=== PATIENT | female | born 1930 | race Caucasian/White ===

== ENCOUNTER 2018-10-17 20:21 | Inpatient (IN) | payer MEDICARE, MEDICAID ==
[~2018-10-17] VITALS: Ht 144.8 cm; Wt 45.5 kg
--- NOTE | 2018-10-17 00:10 | NUR ---
CORRESPONDENCE TRANSCRIBER NOTES ADMITTED AN 88 YEAR OLD PRYDEINIG SPEAKING FEMALE PATIENT, TRANSPORTED VIA GURNEY, ALERT AND CONFUSE, ACCOMPANIED BY DAUGHTER, NO RESPIRATORY DISTRESS, INITIAL ADMISSION ASSESSMENT DONE, ORIENTED PATIENT TO UNIT AND THE USE OF CALL LIGHT, SKIN ASSESSMENT DONE, IV ACCESS ON HER RIGHT AC G#20, SECURED, INTACT AND PATENT PATIENT DOESN'T WANT TO BE TOUCH AND MOVE FROM SIDE TO SIDE, WILL MONITOR ACCORDINGLY. Addendum: 10/18/18 at 0554 by ABDULKADIR AGUILLON RN THIS NOTE IS FOR THIS DATE 10/18/18 AT 00:10
[2018-10-17 11:40] VITALS: BP 146/78
--- NOTE | 2018-10-17 20:50 | NUR ---
BIB FAMILY. TO ER BED 1. JAPANESE SPEAKING FAMILY TO TRANSLET. AAOX3. NAD. NO SOB, BREATHING IS EVEN AND UNLABORED. DENIES CP. NON AMBULATORY, BIB WHEELCHAIR. C/O L HAND PAIN AND SWEELING, NO REDNESS, TENDER TO TOUCH, WARM AND DRY. DENIED OF TRAUMA BEEN GOING ON FOR THE PAST 2 WEEKS BUT WORST TODAY. PT COMPLAINING ALSO ABDOMINAL PAIN THAT STARTED TODAY. PT ON MONITOR. MD AT BEDSIDE FOR EVAL. AWAITING ORDERS
[2018-10-17] MEDS ORDERED: ACETAMINOPHEN 325 MG TABLET ONE (20:59)
[2018-10-17 21:25] LABS: BASOPHILS % (AUTO) 0.7 % (0.0-2.0); EOSINOPHILS % (AUTO) 1.7 % (0.0-6.0); HEMATOCRIT 37 % (33-45); HEMOGLOBIN 12.1 g/dL (11.5-14.8); LYMPHOCYTES % (AUTO) 14.2 % (20.0-44.0); MEAN CORPUSCULAR HGB CONC 33 g/dl (31.0-36.0); MEAN CORPUSCULAR VOLUME 88 fL (82-100); MONOCYTES # (AUTO) 0.6 /CMM (0.1-1.30); MONOCYTES % (AUTO) 8.4 % (2.0-12.0); NEUTROPHILS # (AUTO) 5.1 /CMM (1.8-8.9); PLATELET COUNT (AUTO) 286 /CMM (150-450); RED BLOOD CELL COUNT(AUTO) 4.14 MIL/uL (4.0-5.2); WHITE BLOOD COUNT (AUTO) 6.8 K/uL (4.3-11.0)
[2018-10-17 21:30] LABS: CALCIUM, SERUM 9.7 mg/dL (8.5-10.1); CARBON DIOXIDE 29 mmol/L (21-32); CHLORIDE 102 mmol/L (98-107); CREATININE 1.1 mg/dL (0.6-1.3); GLUCOSE 158 mg/dL (74-106); POTASSIUM 5.3 mmol/L (3.5-5.1); SODIUM SERUM 138 mmol/L (136-145); UREA NITROGEN, BLOOD 31 mg/dL (7-18)
[2018-10-17] MEDS ORDERED: ACETAMINOPHEN 325 MG TABLET PO ONE (21:30)
[2018-10-17 21:36] LABS: ALANINE AMINOTRANSFERASE 17 U/L (12-78); ALBUMIN 2.9 g/dL (3.4-5.0); ALKALINE PHOSPHATASE 205 U/L (46-116); ASPARTATE AMINOTRANSFERASE 27 U/L (15-37); BILIRUBIN,DIRECT 0.1 mg/dL (0.0-0.2); BILIRUBIN,TOTAL 0.5 mg/dL (0.2-1.0); LIPASE 53 U/L (73-393)
[2018-10-17] MEDS ORDERED: IOHEXOL-300 100 ML VIAL IV ONE (21:42)
--- NOTE | 2018-10-17 21:52 | NUR ---
being wheeled to CT
--- NOTE | 2018-10-17 23:17 | NUR ---
REPORT GIVEN TO MARIAH PASTOR. GOING TO 204-1
[2018-10-17] MEDS ORDERED: IV NS 0.9% 1,000 ML BAG IV STA (23:21)
[2018-10-17] MEDS ORDERED: BENA40TA8 PO (23:24)
[2018-10-17] MEDS ORDERED: QUET50TA PO (23:24)
[2018-10-17] MEDS ORDERED: GABA-534 PO (23:24)
[2018-10-17] MEDS ORDERED: METF-440 PO (23:24)
[2018-10-17] MEDS ORDERED: DULO20CA PO (23:24)
--- NOTE | 2018-10-17 23:24 | NUR ---
pt unable to urinate at this time for collection. made aware. no in and out cath. colect urine when pt is able to urinate
[2018-10-17] MEDS ORDERED: CEFTRIAXONE 1GM BAG (ER ONLY) 1 GM/50 ML PIGGYBACK IV ONE (23:30)
[2018-10-17] MEDS ORDERED: VANCOMYCIN 1 GM in IV NS 0.9% 250 ML IV SCH (23:30)
--- NOTE | 2018-10-17 23:30 | NUR ---
PT BEING TRANSPORTED BY EMT TO MED SURG UNIT. FAMILY WITH PATIENT.
--- NOTE | 2018-10-17 23:35 | NUR ---
DR ACOSTA ORDER ATB AND FLUID TO BE GIVEN AT THE FLOOR WHEN PT ARRIVES AT THE UNIT. MED ORDER BY ALEA CONWAY CANCELLED.
[2018-10-18] MEDS ORDERED: MAG HYDROX/AL HYDROX/SIMETH 30 ML UDC PO PRN
[2018-10-18] MEDS ORDERED: TEMAZEPAM 7.5 MG CAPSULE PO PRN
[2018-10-18] MEDS ORDERED: MAGNESIUM HYDROXIDE 30 ML UDC PO PRN
[2018-10-18] MEDS ORDERED: ONDANSETRON HCL/PF 4 MG/2 ML VIAL IVP PRN
[2018-10-18] MEDS ORDERED: HYDROCODONE/APAP 5/325MG 1 EACH TABLET PO PRN
[2018-10-18] MEDS ORDERED: DEXTROSE 50%-WATER 50 ML DISP.SYRIN IV PRN (01:30)
[2018-10-18] MEDS ORDERED: IV NS 0.9% 500 ML IV ONE (01:30)
[2018-10-18] MEDS ORDERED: VANCOMYCIN 1 GM VIAL ONE (02:16)
[2018-10-18] MEDS ORDERED: CEFTRIAXONE 1 G VIAL ONE (02:16)
--- NOTE | 2018-10-18 02:40 | NUR ---
RN NOTES CALLED WAITER/WAITRESS CABIN CLASS MICHELLE ACOSTA, REGARDING ROCEPHIN AND VANCOMYCIN MEDICATIONS THAT WERE SUPPOSED TO BE GIVEN AT ER, OK TO GIVE ROCEPHIN 1GM SCHEDULE FOR 0900 AM AND 1ST DOSE OF VANCOMYCIN 1 GM. NOTED.
[2018-10-18] MEDS: CEFTRIAXONE 1 G in IV D5W 50 ML IV SCH (02:54)
[2018-10-18 06:29] LABS: BASOPHILS % (AUTO) 0.5 % (0.0-2.0); EOSINOPHILS % (AUTO) 1.8 % (0.0-6.0); HEMATOCRIT 37 % (33-45); HEMOGLOBIN 12.3 g/dL (11.5-14.8); LYMPHOCYTES # (AUTO) 1.1 /CMM (0.8-4.8); LYMPHOCYTES % (AUTO) 17.8 % (20.0-44.0); MEAN CORPUSCULAR HGB CONC 34 g/dl (31.0-36.0); MEAN CORPUSCULAR VOLUME 87 fL (82-100); MONOCYTES # (AUTO) 0.6 /CMM (0.1-1.30); MONOCYTES % (AUTO) 9.8 % (2.0-12.0); NEUTROPHILS # (AUTO) 4.5 /CMM (1.8-8.9); NEUTROPHILS % (AUTO) 70.1 % (43.0-81.0); PLATELET COUNT (AUTO) 279 /CMM (150-450); WHITE BLOOD COUNT (AUTO) 6.4 K/uL (4.3-11.0)
[2018-10-18 06:42] LABS: CHOLESTEROL 172 mg/dL (<200); HDL CHOLESTEROL 86 mg/dL (40-60); LDL 63 mg/dL (0-99); TRIGLYCERIDES 177 mg/dL (30-150)
[2018-10-18] MEDS: IV NS 0.9% 1,000 ML IV PRN (07:16)
--- NOTE | 2018-10-18 07:25 | NUR ---
RN NOTES ALL NEEDS ATTENDED AND MET, KEPT CLEAN DRY AND COMFORTABLE, ENDORSED TO AM NURSE FOR CONTINUITY OF CARE, SEEN BY WOUND LUMBER SORTER MACHINE SOLANGE, ENDORSED FOR CONTINUITY OF CARE.
[2018-10-18] MEDS: BLOOD SUGAR DIAGNOSTIC 1 EACH STRIP IN SCH ×4 (07:31→22:00)
[2018-10-18] MEDS ORDERED: FEE PK DOSING 1 MIN EA MC ONE (07:56)
[2018-10-18 08:00] VITALS: BP_SYST 120; BP_SYST 174; BP_DIAS 59; BP_DIAS 99
--- NOTE | 2018-10-18 08:00 | NUR ---
MS 2 RN AM NOTES RECEIVED PT ALERT AND CONFUSED.VERBALLY RESPONSIVE IN ARMENIAN.PT HITS STAFF AND IS NON COMPLIANT WITH HER MEDS AND TX INSPITE OF EXPLAINING ITS RISKS AND BENEFITS.PT IS UNCOOPERATIVE. SCREAMING IN PAIN BUT REFUSED TO TAKE HER PAIN MEDS.SPITTED OUT ALL HER AM PO MEDS.WILL TRY LATER.A FEEDER.CALL LIGHT PLACED WITHIN REACH.
--- NOTE | 2018-10-18 08:05 | NUR ---
WOUND CARE CONSULT: PT PRESENTS WITH LEFT HAND SWELLING WITH RAISED AREA, SACRAL DEEP TISSUE INJURY IN EVOLUTION OVER SCARRING, LEFT HEEL CALLUS AND RT 4TH TOENAIL INJURY, PRESENT ON ADMISSION. RECOMMEND DPM CONSULT. DEFER TO MD/DNP FOR LEFT HAND. RECOMMENDATIONS MADE FOR WOUND CARE AND SKIN PROTECTION. DISCUSSED WITH NURSING STAFF. LOW AIRLOSS BED (ISOFLEX) TO BE PLACED. WILL SEE PRN. CONWAY IN AGREEMENT WITH PLAN OF CARE. Addendum: 10/18/18 at 0809 by ROMIE HILLU Amended: Links added. Addendum: 10/18/18 at [address] BOLIVAR NOTIFIED OF DPM CONSULT REQUEST.
[2018-10-18] MEDS ORDERED: ASPI-605 PO (08:21)
[2018-10-18] MEDS ORDERED: Z GUARD REMEDY 2 OZ OINT TP PRN (08:30)
[2018-10-18] MEDS: DULOXETINE HCL 20 MG CAPSULE.DR PO SCH ×2 (09:00→09:03)
[2018-10-18] MEDS: BENAZEPRIL HCL 20 MG TABLET PO SCH ×2 (09:00→09:03)
[2018-10-18] MEDS: QUETIAPINE FUMARATE 25 MG TABLET PO SCH ×3 (09:00→17:25)
--- NOTE | 2018-10-18 09:00 | NUR ---
Pt spitted all her AM meds and refused insulin as well inspite of explaining the risks and benefits.
[2018-10-18] MEDS: Z GUARD REMEDY 2 OZ OINT TP SCH (09:03)
[2018-10-18] MEDS: HYDROCODONE/APAP 10/325MG 1 EA TABLET PO PRN (09:03)
[2018-10-18 09:13] LABS: CARBON DIOXIDE 24 mmol/L (21-32); CHLORIDE 103 mmol/L (98-107); CREATININE 0.9 mg/dL (0.6-1.3); GLUCOSE 156 mg/dL (74-106); MAGNESIUM 1.5 mg/dL (1.8-2.4); PHOSPHORUS 3.9 mg/dL (2.5-4.9); POTASSIUM 4.7 mmol/L (3.5-5.1); SODIUM SERUM 140 mmol/L (136-145); UREA NITROGEN, BLOOD 25 mg/dL (7-18)
[2018-10-18] MEDS: AMLODIPINE BESYLATE 2.5 MG TABLET PO SCH (11:05)
[2018-10-18] MEDS: LACTOBACILLUS RHAMNOSUS GG 1 EACH CAP.SPRINK PO SCH (17:26)
--- NOTE | 2018-10-18 18:00 | NUR ---
PT REFUSED DINNER AND PO MEDS LACTOBACILLI AND SEROQUEL-HELD ADMINISTERING INSULIN.PT'S DAUGHTER AT BEDSIDE.
--- NOTE | 2018-10-18 19:06 | NUR ---
PT WAS SEEN BY DR LOVE AND NOLA CROCKER.
[2018-10-18 19:26] LABS: BILIRUBIN,URINE NEGATIVE (NEGATIVE); BLOOD, URINE 1+ Ery/uL (NEGATIVE); COLOR,URINE YELLOW (YELLOW); KETONES,URINE NEGATIVE (NEGATIVE); LEUKOCYTE ESTERASE ,URINE 1+ (NEGATIVE); NITRITE, URINE NEGATIVE (NEGATIVE); PH,URINE 5.5 (5.0-8.0); PROTEIN,URINE NEGATIVE (NEGATIVE); UGLUCOSE NEGATIVE (NEGATIVE); UROBILINOGEN,URINE 0.2 EU/dL (0.2)
--- NOTE | 2018-10-18 19:30 | NUR ---
RN OPENING NOTES: RECEIVED PATIENT ASLEEP IN BED, AROUSABLE, SLIGHTLY LETHARGIC. RESPONDS TO NAME AND PAIN. NO COMPLAIN OF PAIN. CALL LIGHT WITHIN REACH.
[2018-10-18 19:37] LABS: APPEARANCE,URINE HAZY (CLEAR)
[2018-10-18 19:38] LABS: BACTERIA,URINE Moderate /HPF (None Seen); SQUAMOUS EPITHELIAL CELL,UR Many /HPF (None Seen)
[2018-10-18 19:39] LABS: URINE AMORPHOUS URATE Few /HPF (None Seen)
[2018-10-18 20:22] VITALS: BP 133/85
[2018-10-18] MEDS: INSULIN REGULAR, HUMAN 100 UNIT/ML 3 ML VIAL SQ PRN (21:18)
--- NOTE | 2018-10-18 21:19 | NUR ---
RN NOTES: FINGERSTICK BLOOD SUGAR IS 113, NO INSULIN GIVEN. PER REPORTS FROM RN AM SHIFT,PATIENT DID NOT EAT HER DINNER. PATIENT HAS BEEN REFUSING MEDS. WILL CONTINUE TO MONITOR PATIENT AND BLOOD SUGAR.
[2018-10-18] MEDS: GABAPENTIN 300 MG CAPSULE PO SCH (21:25)
[2018-10-19] MEDS: IV NS 0.9% 1,000 ML IV PRN ×2 (00:21→20:00)
--- NOTE | 2018-10-19 03:56 | NUR ---
patient is awake, pulled her IV out, tip is intact, no bleeding noted.
--- NOTE | 2018-10-19 04:30 | NUR ---
IV G 22 reiserted by Lan LEMUS @ the left forearm.
[2018-10-19] MEDS: ACETAMINOPHEN 325 MG TABLET PO PRN ×2 (04:35→04:54)
[2018-10-19] MEDS: VANCOMYCIN 1 GM in IV D5W 250 ML IV SCH (04:35)
[2018-10-19] MEDS: INSULIN REGULAR, HUMAN 100 UNIT/ML 3 ML VIAL SQ PRN (07:01)
--- NOTE | 2018-10-19 07:06 | NUR ---
MS RN CLOSING NOTES: PATIENT IS RESTING COMFORTABLY IN BED, CONFUSED. NO SOB. PATIENT IS AWAKE,ALERT. BLOOD SUGAR THIS AM IS 176, 3 UNITS HUMULIN-R GIVEN. NO ACUTE EVENTS OVERNIGHT. NO COMPLAIN OF PAIN.
[2018-10-19] MEDS: BLOOD SUGAR DIAGNOSTIC 1 EACH STRIP IN SCH ×4 (07:21→21:37)
[2018-10-19 07:49] LABS: BASOPHILS % (AUTO) 0.5 % (0.0-2.0); EOSINOPHILS % (AUTO) 1.8 % (0.0-6.0); HEMATOCRIT 33 % (33-45); HEMOGLOBIN 11.1 g/dL (11.5-14.8); LYMPHOCYTES # (AUTO) 0.9 /CMM (0.8-4.8); LYMPHOCYTES % (AUTO) 14.4 % (20.0-44.0); MEAN CORPUSCULAR HGB CONC 34 g/dl (31.0-36.0); MEAN CORPUSCULAR VOLUME 87 fL (82-100); MONOCYTES # (AUTO) 0.6 /CMM (0.1-1.30); MONOCYTES % (AUTO) 10.1 % (2.0-12.0); NEUTROPHILS # (AUTO) 4.6 /CMM (1.8-8.9); NEUTROPHILS % (AUTO) 73.2 % (43.0-81.0); PLATELET COUNT (AUTO) 249 /CMM (150-450); RED BLOOD CELL COUNT(AUTO) 3.76 MIL/uL (4.0-5.2); WHITE BLOOD COUNT (AUTO) 6.3 K/uL (4.3-11.0)
[2018-10-19 07:59] LABS: CALCIUM, SERUM 8.3 mg/dL (8.5-10.1); CARBON DIOXIDE 22 mmol/L (21-32); CHLORIDE 105 mmol/L (98-107); CREATININE 0.6 mg/dL (0.6-1.3); GLUCOSE 192 mg/dL (74-106); PHOSPHORUS 2.9 mg/dL (2.5-4.9); POTASSIUM 4.3 mmol/L (3.5-5.1); SODIUM SERUM 137 mmol/L (136-145); UREA NITROGEN, BLOOD 14 mg/dL (7-18)
[2018-10-19 08:00] VITALS: BP 151/94
--- NOTE | 2018-10-19 08:00 | NUR ---
MS 2 RN AM NOTES RECEIVED PT ALERT AND CONFUSED.VERBALLY RESPONSIVE IN ESTONIAN.PT HITS STAFF AND IS NON COMPLIANT WITH HER MEDS AND TX INSPITE OF EXPLAINING ITS RISKS AND BENEFITS.PT IS UNCOOPERATIVE. PT TOOK HER MEDS WITH THE SON AT BEDSIDE.PT IS COOPERATIVE WHEN HER SON IS AROUND.A FEEDER.CALL LIGHT PLACED WITHIN REACH.
[2018-10-19 08:07] LABS: MAGNESIUM 1.2 mg/dL (1.8-2.4)
[2018-10-19] MEDS: HYDROCODONE/APAP 10/325MG 1 EA TABLET PO PRN (08:30)
[2018-10-19] MEDS: BENAZEPRIL HCL 20 MG TABLET PO SCH (08:30)
[2018-10-19] MEDS: AMLODIPINE BESYLATE 2.5 MG TABLET PO SCH (08:30)
[2018-10-19] MEDS: Z GUARD REMEDY 2 OZ OINT TP SCH (08:31)
[2018-10-19] MEDS: QUETIAPINE FUMARATE 25 MG TABLET PO SCH ×2 (08:31→17:40)
[2018-10-19] MEDS: DULOXETINE HCL 20 MG CAPSULE.DR PO SCH (08:31)
[2018-10-19] MEDS: LACTOBACILLUS RHAMNOSUS GG 1 EACH CAP.SPRINK PO SCH ×2 (08:31→17:40)
[2018-10-19] MEDS: ASPIRIN EC 81 MG TABLET.DR PO SCH (08:31)
[2018-10-19] MEDS: CEFTRIAXONE 1 G in IV D5W 50 ML IV SCH (08:33)
[2018-10-19] MEDS ORDERED: MAGNESIUM OXIDE 400 MG TABLET PO ONE (09:30)
[2018-10-19] MEDS ORDERED: LORAZEPAM INJ 2 MG/ML VIAL IV ONE (09:30)
[2018-10-19 16:00] VITALS: BP 132/68
--- NOTE | 2018-10-19 19:03 | NUR ---
PT RESTING IN BED NOT SCREAMING AND WAS CALM AT THIS TIME.NON COMPLIANT WITH STAFF BUT COOPERATIVE WITH FAMILY.NO S/S OF PAIN OR DISTRESS.WITH ONGOING IVF NS AT 75 ML/HR INFUSING WELL. CALL LIGHT PLACED WITHIN REACH.
--- NOTE | 2018-10-19 19:50 | NUR ---
RN INITIAL NOTES: RECEIVED REPORT FROM STEFANY Schneider RN, PT IN BED, OPEN EYES TO TOUCH AND PAIN, ON RA RESPIRATION EVEN AND UNLABORED, S/P CT CHEST AND CT HEAD WO CONTRAST TODAY, WAS GIVEN ATIVAN MD ORDER PRIOR TO PROCEDURE, PT APPEARS CALM AND COMFORTABLE, NO FACIAL GRIMACE NOTED, PER REPORT PT TRIES TO HIT ON SITE SOIL EVALUATOR STAFF THIS MORNING DURING BREAKFAST, ABLE TO COMMUNICATE WITH FAMILY AND STAFF. BUT OF THE MOMENT PT IS QUIET, SLEEPING AROUSES TO PAIN OR TOUCH, PT'S DAUGHTER TRYING TO FEED PT WITH HEAD FLAT, INFORMED PT'S DAUGHTER ABOUT POSSIBILITY OF ASPIRATION, DECIDED TO EDUCATE FAMILY REGARDING ASPIRATION PRECAUTION MEASURES, ELEVATE HOB 30 DEGREES, BUT SINCE PT NOTED TO BE PASSIVE, SOMEWHAT LETHARGIC, INFORMED FAMILY NOT BEST TIME TO FEED THE PT, AND WAIT TILL PT MORE AWAKE, HIGH RISK FOR ASPIRATION. NOTED LEFT HAND SWELLING, AND PT NOTED TO HAVE FACIAL GRIMACE WHEN TOUCHING AND LIFTING LEFT HAND. SPOKED WITH PT'S DAUGHTER WHO'S AT BED SIDE, PER DAUGHTER SHE CLAIMED HER MOTHER WAS A TOTALLY DIFFERENT PERSON COMPARED TO THE DAY THEY BROUGHT HER IN THE HOSPITAL. EXPLAINED TO PT ABOUT THE MEDICATIONS GIVEN TO PT NECESSARY TO THE PROBLEM (LEFT HAND OM) AND THE PROCEDURES DONE, PER HER MENTAL STATUS AT THE MOMENT SEEMS LIKE MEDICATION HAS LONG EFFECT ON HER (PT WAS GIVEN ATIVAN), DECIDED TO PUT PT ON TELE MONITORING OBSERVATION CURRENT READING IS SINUS RHYTHM HR 79. SAFETY PRECAUTIONS FOR FALL INITIATED, CALL LIGHT IN REACH, WILL CONTINUE MONITORING PT.
[2018-10-19 20:00] VITALS: BP 109/55
--- NOTE | 2018-10-19 20:00 | NUR ---
RN NOTES: VS FOLLOWS 98.2 92 18 96% ON RA 109/55
--- NOTE | 2018-10-19 20:30 | NUR ---
RN NOTES: REPOSITION PT AT THIS TIME, PT HAS SACRAL DRI, DRESSING IN PLACED, PT ABLE TO OPEN EYES BUT CLOSE RIGHT AWAY, PT RESPOND TO PAINFUL STIMULI, SINUS RHYTHM HR 70
--- NOTE | 2018-10-19 21:00 | NUR ---
RN NOTES: NOTIFIED RN SUP REGARDING PT'S CONDITION, WILL CALL EPIC MD CONCRETE SMOOTHER
--- NOTE | 2018-10-19 21:30 | NUR ---
BLOOD SUGAR 138: ACCU CHECK PERFORMED RESULT OBTAINED IS 138, NO INSULIN GIVEN AT THIS TIME, PT DIDN'T EAT HER DINNER, ACCDG TO DAUGHTER ONLY 4TEASPOON, ALSO PT BEEN SLEEPY NOT SAFE TO FEED PT AT THIS TIME, NEURONTIN NOT ADMINISTER AT THIS TIME PER SAFETY PURPOSES HIGH RISK OF ASPIRATION.
[2018-10-19] MEDS: GABAPENTIN 300 MG CAPSULE PO SCH (21:38)
--- NOTE | 2018-10-19 22:26 | NUR ---
RN NOTES: SPOKED WITH EPIC MD VP PRODUCT MANAGEMENT RELAYED THE SITUATION, PER MD CONTINUE MONITORING PT, INFORMED MD ABOUT PLACING PT ON TELE MONITORING FOR OBSERVATION, HELD PO MEDS DUE TO PT'S CONDITION AT THIS TIME
--- NOTE | 2018-10-19 23:10 | NUR ---
RN NOTES: PT CALM AND SLEEPING BUT AROUSABLE, AMHARIC TANO STEFANY SPEAKING WITH THE PT AT THIS TIME, AND PT ABLE TO RESPOND IN HER LANGUAGE,
--- NOTE | 2018-10-20 00:11 | NUR ---
RN NOTES: WENT TO CHECK ON THE PT ACCOMPANIED BY TANO MCCALL, ANDORRAN SPEAKING TANO, ASKED HOW PT IS DOING, PT CLAIMED IN [place] SHE IS SLEEPY, OFFERED SOMETHING TO DRINK OR EAT BUT PT REFUSED STATED SHE WOULD LIKE TO GO BACK TO SLEEP AGAIN".
--- NOTE | 2018-10-20 02:30 | NUR ---
RN NOTES?; PT AWAKE, COMMUNICATIVE, RESPOND TO QUESTIONS, DENIES ANY PAIN OR DISCOMFORT
[2018-10-20] MEDS: VANCOMYCIN 1 GM in IV D5W 250 ML IV SCH (04:00)
--- NOTE | 2018-10-20 05:20 | NUR ---
AM CARE: BED BATH PROVIDED BY TANO MCCALL, ALSO OFFERED SNACK, ATE PUDDING 100% Addendum: 10/20/18 at 0621 by DAMIAN WHYTE RN CORRECTION OF ENTRY: PT ONLY ATE 25% OF THE PUDDING
[2018-10-20] MEDS: BLOOD SUGAR DIAGNOSTIC 1 EACH STRIP IN SCH ×4 (06:55→21:55)
[2018-10-20] MEDS: INSULIN REGULAR, HUMAN 100 UNIT/ML 3 ML VIAL SQ PRN ×2 (06:56→21:55)
--- NOTE | 2018-10-20 06:57 | NUR ---
BLOOD SUGAR 146: PERFORMED ACCU CHECK 146, NO INSULIN GIVEN PT REFUSING TO EAT, EDUCATION PROVIDED TPO THE PT.
--- NOTE | 2018-10-20 07:26 | NUR ---
rn closing notes: pt in bed, open eyes spontaneously, more awake, cymraes speaking, respond to questions. iv access remains patent and flushing well, infusing with ns at 75ml/hr, left hand and ble offloaded on pillows. aspiration precaution followed. tele monitoring dc at 050am, last rhythm recored to be sinus rhythm hr 70. vs remains sble, needs attended. safety precautions for fall remains engaged, call light in reach, will endorse to day rn for continuity of care.
--- NOTE | 2018-10-20 07:30 | NUR ---
MS RN OPENING NOTES RECEIVED PT LAYING IN BED WITH HOB ELEVATED. PT IS A/O X2, WITH CONFUSION. PT IS AFEBRILE. RESPIRATIONS ARE EVEN AND UNLABORED, NOT IN ANY ACUTE DISTRESS NOTED. PT DENIES ANY PAIN AT THIS TIME, DOES NOT APPEAR TO HAVE SOB, N/V. IV SITE TO LFA 22G INTACT, NO INFILTRATION NOTED. DRESSINGS KEPT CLEAN AND DRY. WILL REPOSITION PER PROTOCOL. SAFETY MEASURES ARE IN PLACE. INSTRUCTED PT TO USE CALL LIGHT WHEN ASSISTANCE IS NEEDED, CALL LIGHT IS LEFT WITHIN REACH. WILL MONITOR THROUGHOUT SHIFT FOR CONTINUITY OF CARE.
[2018-10-20 08:00] VITALS: BP 148/79
[2018-10-20] MEDS: LACTOBACILLUS RHAMNOSUS GG 1 EACH CAP.SPRINK PO SCH ×2 (08:18→16:07)
[2018-10-20] MEDS: CEFTRIAXONE 1 G in IV D5W 50 ML IV SCH (08:18)
[2018-10-20] MEDS: BENAZEPRIL HCL 20 MG TABLET PO SCH (08:18)
[2018-10-20] MEDS: DULOXETINE HCL 20 MG CAPSULE.DR PO SCH (08:18)
[2018-10-20] MEDS: QUETIAPINE FUMARATE 25 MG TABLET PO SCH ×2 (08:18→16:07)
[2018-10-20] MEDS: ASPIRIN EC 81 MG TABLET.DR PO SCH (08:18)
[2018-10-20] MEDS: AMLODIPINE BESYLATE 2.5 MG TABLET PO SCH (08:19)
[2018-10-20] MEDS: Z GUARD REMEDY 2 OZ OINT TP SCH (08:19)
[2018-10-20 11:39] LABS: CALCIUM, SERUM 8.4 mg/dL (8.5-10.1); CARBON DIOXIDE 23 mmol/L (21-32); CHLORIDE 106 mmol/L (98-107); CREATININE 0.6 mg/dL (0.6-1.3); GLUCOSE 156 mg/dL (74-106); POTASSIUM 4.3 mmol/L (3.5-5.1); SODIUM SERUM 138 mmol/L (136-145); UREA NITROGEN, BLOOD 9 mg/dL (7-18)
[2018-10-20] MEDS: IV NS 0.9% 1,000 ML IV PRN (11:41)
--- NOTE | 2018-10-20 13:00 | NUR ---
MS RN NOTES-- PT WAS SEEN AND EXAMINED BY NOLA PRICE W/ ORDERS FOR MRI LEFT WRIST W/ CONTRAST. WAITING FOR ISABEL BENEDICT TO VISIT TO SIGN CONSENTS.
[2018-10-20 16:00] VITALS: BP 147/78
--- NOTE | 2018-10-20 16:00 | NUR ---
MS RN NOTES-- PT WAS SEEN AND EXAMINED BY DR. LOVE.
--- NOTE | 2018-10-20 18:49 | NUR ---
MS RN CLOSING NOTES ALL DUE MEDS GIVEN, NEEDS MET AND RENDERED. PT IS A/O X1, CONFUSED. PT IS AFEBRILE. RESPIRATIONS ARE EVEN AND UNLABORED, NOT IN ANY ACUTE DISTRESS NOTED. NO FACIAL GRIMACING OR MOANING NOTED. IV SITE TO RFA INTACT, NO INFILTRATION NOTED. DRESSING KEPT CLEAN AND DRY. SAFETY MEASURES ARE IN PLACE. REMINDED PT TO USE CALL LIGHT WHEN ASSISTANCE IS NEEDED, CALL LIGHT IS LEFT WITHIN REACH. ISABEL BENEDICT AT BEDSIDE. WILL ENDORSE TO NEXT SHIFT FOR CONTINUITY OF CARE.
--- NOTE | 2018-10-20 19:56 | NUR ---
RN MS OPENING NOTES RECEIVED PATIENT IN BED AWAKE ,ALERT AND ORIENTED X1, CONFUSED. DAUGHTER AT BEDSIDE. BREATHING EVEN AND UNLABORED. NO SOB NOTED TOLERATING ROOM AIR. NO S/S OF PAIN OR DISCOMFORT. NO FACIAL GRIMACING. IV ON LEFT FOREARM INTACT AND PATENT WITH IVF INFUSING. SKIN DRY AND WARM TO TOUCH. AFEBRILE. DRESSINGS DRY, CLEAN AND INTACT. ALL OTHER NEEDS MET. SAFETY MEASURES IN PLACE. CALL LIGHT WITHIN REACH. WILL CONTINUE TO MONITOR.
[2018-10-20 20:00] VITALS: BP 147/78
[2018-10-20] MEDS: GABAPENTIN 300 MG CAPSULE PO SCH (21:56)
--- NOTE | 2018-10-20 22:01 | NUR ---
RN MS NOTES BS 140. NO INSULIN GIVE DUE TO POOR PO INTAKE. PER PATIENT'S DAUGHTER, PATIENT ONLY HAD 4 SPOONS OF APPLE SAUCE FOR DINNER. WILL CONTINUE TO MONITOR.
[2018-10-21] MEDS: IV NS 0.9% 1,000 ML IV PRN ×2 (01:22→15:06)
--- NOTE | 2018-10-21 01:34 | NUR ---
RN MS NOTES PATIENT CURRENTLY SLEEPING. IN NO DISTRESS. ALL NEEDS MET. WILL CONTINUE TO MONITOR.
[2018-10-21 03:50] LABS: BASOPHILS % (AUTO) 0.6 % (0.0-2.0); EOSINOPHILS % (AUTO) 2.5 % (0.0-6.0); HEMATOCRIT 34 % (33-45); HEMOGLOBIN 11.3 g/dL (11.5-14.8); LYMPHOCYTES # (AUTO) 0.7 /CMM (0.8-4.8); LYMPHOCYTES % (AUTO) 12.8 % (20.0-44.0); MEAN CORPUSCULAR HGB CONC 34 g/dl (31.0-36.0); MEAN CORPUSCULAR VOLUME 87 fL (82-100); MONOCYTES # (AUTO) 0.6 /CMM (0.1-1.30); MONOCYTES % (AUTO) 11.1 % (2.0-12.0); NEUTROPHILS # (AUTO) 3.8 /CMM (1.8-8.9); PLATELET COUNT (AUTO) 248 /CMM (150-450); RED BLOOD CELL COUNT(AUTO) 3.87 MIL/uL (4.0-5.2); WHITE BLOOD COUNT (AUTO) 5.2 K/uL (4.3-11.0)
[2018-10-21 04:05] LABS: CALCIUM, SERUM 8.6 mg/dL (8.5-10.1); CARBON DIOXIDE 25 mmol/L (21-32); CHLORIDE 107 mmol/L (98-107); CREATININE 0.7 mg/dL (0.6-1.3); GLUCOSE 141 mg/dL (74-106); POTASSIUM 4.1 mmol/L (3.5-5.1); SODIUM SERUM 141 mmol/L (136-145); UREA NITROGEN, BLOOD 7 mg/dL (7-18)
--- NOTE | 2018-10-21 06:30 | NUR ---
RN MS NOTES PATIENT IS REFUSING TO HAVE BLOOD SUGAR CHECKED. PATIENT IS A/O X1, CONFUSED, BUT CONSISTENTLY SAYS "NO" WHEN ASKED TO HAVE BLOOD SUGAR CHECKED. ATTEMPTED MORE THAN 3 TIMES BUT STILL SAYS NO. WILL ATTEMPT AGAIN LATER OR ENDORSE TO ONCOMING NURSE.
--- NOTE | 2018-10-21 06:50 | NUR ---
RN MS CLOSING NOTES PATIENT RESTING IN BED - IN NO DISTRESS. NO ACUTE CHANGES THROUGHOUT SHIFT. BREATHING EVEN AND UNLABORED. NO SOB NOTED. TOLERATING ROOM AIR. NO S/S OF PAIN OR DISCOMFORT. NO FACIAL GRIMACING. IV ON LEFT FOREARM INTACT AND PATENT WITH IVF INFUSING. SKIN DRY AND WARM TO TOUCH. AFEBRILE. DRESSING CLEAN DRY AND INTACT. ALL OTHER NEEDS MET. SAFETY MEASURES IN PLACE. CALL LIGHT WITHIN REACH. WILL ENDORSE TO ONCOMING NURSE FOR [place].
--- NOTE | 2018-10-21 07:26 | NUR ---
RN MS NOTES THERE WAS AN ERROR IN PATIENT'S CONSENT FORMS. CONSENT FORM STATED US GUIDED PARACENTESIS INSTEAD OF US GUIDED THORACENTESIS. MADE A NEW FORM AND ATTEMPTED TO CALL DAUGHTER, DEBORA, OVER THE PHONE FOR CONSENT. CALLED DEBORA 3 TIMES AND WAS ONLY ABLE TO LEAVE A MASSAGE 1 TIME DUE TO VOICEMAIL BEING FULL. ENDORSED TO DAY NURSE TO FOLLOW UP.
[2018-10-21] MEDS: BLOOD SUGAR DIAGNOSTIC 1 EACH STRIP IN SCH ×4 (07:30→23:41)
--- NOTE | 2018-10-21 07:30 | NUR ---
BS UNABLE TO OBTAIN PATIENT REFUSING AND PULLING HAND BACK
--- NOTE | 2018-10-21 07:41 | NUR ---
RN MS OPENING NOTES BEDSIDE REPORT GIVEN PATIENT AWAKE A/O X1 CONFUSED MALTESE SPEAKING NO SIGNS OR SYMPTOMS OF RESPIRATORY DISTRESS OR ACUTE PAIN NOTED DOES NOT WANT TO BE TOUCHED. LFA @22 GAUGE IVF NS @75 ML/HR. MESSAGE LEFT WITH DAUGHTER FROM ANGELA LEMUS IN REGARDS TO CONSENT FOR THORACENTESIS. SAFETY PRECAUTIONS IN PLACE BED IN LOW POSITION SIDE RAILS X2 AND BED ALARM ABRASIVE WHEEL MOLDER LIGHT WITHIN REACH WILL CONT TO MONITOR
[2018-10-21 08:00] VITALS: BP 161/72
[2018-10-21] MEDS: ASPIRIN EC 81 MG TABLET.DR PO SCH ×2 (09:00→09:17)
[2018-10-21] MEDS: DULOXETINE HCL 20 MG CAPSULE.DR PO SCH (09:16)
[2018-10-21] MEDS: LACTOBACILLUS RHAMNOSUS GG 1 EACH CAP.SPRINK PO SCH ×2 (09:16→18:14)
[2018-10-21] MEDS: Z GUARD REMEDY 2 OZ OINT TP SCH (09:17)
[2018-10-21] MEDS: AMLODIPINE BESYLATE 2.5 MG TABLET PO SCH (09:17)
[2018-10-21] MEDS: BENAZEPRIL HCL 20 MG TABLET PO SCH (09:17)
[2018-10-21] MEDS: QUETIAPINE FUMARATE 25 MG TABLET PO SCH ×2 (09:17→18:14)
[2018-10-21] MEDS ORDERED: AMLO2.5T4 PO (09:24)
--- NOTE | 2018-10-21 10:37 | NUR ---
RN MS NOTES SPOKE WITH DEE STOUT IN REGARDS TO PLAN OF CARE. CALLED AND SPOKE WITH DAUGHTER AT FOR GOOD TIME TO REACH HER TO SPEAK WITH DEE. DAUGHTER JAK [phone] SAID SHE CAN BE REACHED @ 1200 OR LATER. WILL BE IN TO SEE MOTHER AROUND 1730. CALLED EPIC AND LEFT MESSAGE FOR DEE
--- NOTE | 2018-10-21 10:53 | NUR ---
RN MS NOTES SPOKE WITH DEE GAVE DAUGHTER SCOTT NUMBER TO HER TO CONTACT
[2018-10-21] MEDS: INSULIN REGULAR, HUMAN 100 UNIT/ML 3 ML VIAL SQ PRN ×2 (12:27→23:41)
--- NOTE | 2018-10-21 12:27 | NUR ---
RN MS NOTES BS 132 MG/DL NO COVERAGE GIVEN PT HAS POOR APPETITE NOT EATING
[2018-10-21 16:00] VITALS: BP 168/89
--- NOTE | 2018-10-21 19:26 | NUR ---
RN MS OPENING NOTES BEDSIDE REPORT GIVEN PATIENT AWAKE A/O X1 CONFUSED IRISH SPEAKING DAUGHTER AT BEDSIDE NO SIGNS OR SYMPTOMS OF RESPIRATORY DISTRESS OR ACUTE PAIN NOTED DOES NOT WANT TO BE TOUCHED. LFA @22 GAUGE IVF NS @75 ML/HR PLACED ON HOLD D/T SWELLING.ENDORSED TO NOC ALL CONSENTS SIGNED BY DAUGHTER FOR AM US GUIDED LIVER BIOPSY AND US GUIDED THORACENTESIS SAFETY PRECAUTIONS /ASPIRATION IN PLACE BED IN LOW POSITION SIDE RAILS X2 AND BED ALARM ELECTRIC POWER LINE REPAIRER LIGHT WITHIN REACH WILL CONT TO MONITOR
--- NOTE | 2018-10-21 19:38 | NUR ---
ENDORSED REPORT TO NOC
[2018-10-21 19:49] VITALS: BP 172/80
--- NOTE | 2018-10-21 20:00 | NUR ---
MR RN NOTES RECEIVED PATIENT AWAKE IN BED WITH NO DISTRESS NOTED. CALL LIGHT WITHIN REACH. DTR AT BEDSIDE. NPO STATUS OBSERVED AND MAINTAINED AT ALL TIMES. NO C/O PAIN OR DISCOMFORT. BED IN LOW LOCK SETTING. ALL BELONGINGS KEPT NEAR BEDSIDE. WILL CONTINUE TO MONITOR.
[2018-10-21] MEDS: GABAPENTIN 300 MG CAPSULE PO SCH (22:00)
[2018-10-22 05:09] LABS: AFP, TUMOR MARKER 1.6 ng/mL (0.0-8.3); CANCER AG, 125 60.4 U/mL (0.0-38.1); CANCER AG, 15-3 12.8 U/mL (0.0-25.0)
[2018-10-22 06:29] LABS: BASOPHILS % (AUTO) 0.5 % (0.0-2.0); EOSINOPHILS % (AUTO) 0.9 % (0.0-6.0); HEMATOCRIT 33 % (33-45); HEMOGLOBIN 11.3 g/dL (11.5-14.8); LYMPHOCYTES # (AUTO) 0.7 /CMM (0.8-4.8); LYMPHOCYTES % (AUTO) 12.5 % (20.0-44.0); MEAN CORPUSCULAR HGB CONC 34 g/dl (31.0-36.0); MEAN CORPUSCULAR VOLUME 86 fL (82-100); MONOCYTES # (AUTO) 0.7 /CMM (0.1-1.30); MONOCYTES % (AUTO) 12.3 % (2.0-12.0); NEUTROPHILS # (AUTO) 4.3 /CMM (1.8-8.9); NEUTROPHILS % (AUTO) 73.8 % (43.0-81.0); PLATELET COUNT (AUTO) 252 /CMM (150-450); RED BLOOD CELL COUNT(AUTO) 3.86 MIL/uL (4.0-5.2); WHITE BLOOD COUNT (AUTO) 5.9 K/uL (4.3-11.0)
[2018-10-22 06:54] LABS: CALCIUM, SERUM 8.3 mg/dL (8.5-10.1); CARBON DIOXIDE 21 mmol/L (21-32); CHLORIDE 103 mmol/L (98-107); CREATININE 0.6 mg/dL (0.6-1.3); GLUCOSE 115 mg/dL (74-106); MAGNESIUM 1.3 mg/dL (1.8-2.4); PHOSPHORUS 3.3 mg/dL (2.5-4.9); POTASSIUM 3.9 mmol/L (3.5-5.1); SODIUM SERUM 138 mmol/L (136-145); UREA NITROGEN, BLOOD 6 mg/dL (7-18)
--- NOTE | 2018-10-22 07:05 | NUR ---
MS RN NOTES PATIENT IN LYING BED EYES CLOSED, EASY TO AROUSE, RESPOND TO VERBAL AND TACTILE STIMULI. NO ACUTE DISTRESS NOTED. BREATHING UNLABORED. NO SOB NOTED. IV ACCESS PATENT AND INTACT, NO REDNESS OR SWELLING NOTED. SAFETY MEASURES IN PLACE. CALL LIGHT WITHIN REACH. WILL CONTINUE TO MONITOR ACCORDINGLY.
--- NOTE | 2018-10-22 07:17 | NUR ---
MS RN NOTES PATIENT ASLEEP IN BED WITH NO DISTRESS NOTED. CALL LIGHT WITHIN REACH. NPO STATUS OBSERVED AND MAINTAINED AT ALL TIMES. NO FURTHER C/O PAIN OR DISCOMFORT. PERIPHERAL LINE INTACT AND PATENT. BED IN LOW LOCK SETTING. ALL BELONGINGS KEPT NEAR BEDSIDE. WILL ENDORSE TO ONCOMING SHIFT.
[2018-10-22] MEDS: BLOOD SUGAR DIAGNOSTIC 1 EACH STRIP IN SCH ×4 (07:22→21:54)
[2018-10-22 08:00] VITALS: BP 171/91
[2018-10-22] MEDS: AMLODIPINE BESYLATE 2.5 MG TABLET PO SCH (09:00)
[2018-10-22] MEDS: DULOXETINE HCL 20 MG CAPSULE.DR PO SCH (09:00)
[2018-10-22] MEDS: ASPIRIN EC 81 MG TABLET.DR PO SCH (09:00)
[2018-10-22] MEDS: QUETIAPINE FUMARATE 25 MG TABLET PO SCH ×2 (09:00→17:43)
[2018-10-22] MEDS: LACTOBACILLUS RHAMNOSUS GG 1 EACH CAP.SPRINK PO SCH ×2 (09:00→17:43)
[2018-10-22] MEDS: BENAZEPRIL HCL 20 MG TABLET PO SCH (09:00)
[2018-10-22] MEDS ORDERED: MIDAZOLAM HCL 5MG/ML VIAL 25 MG/5 ML VIAL IV ONE (10:00)
[2018-10-22] MEDS ORDERED: NALOXONE PREFILLED SYRINGE 2 MG/2 ML SYRINGE IV ONE (10:00)
[2018-10-22] MEDS ORDERED: FENTANYL PF 250MCG/5ML AMPUL IV ONE (10:00)
[2018-10-22] MEDS: Z GUARD REMEDY 2 OZ OINT TP SCH (10:08)
[2018-10-22] MEDS: Magnesium 1GM/D5W 100ML PREMIX 100 ML IV SCH ×4 (10:21→14:00)
[2018-10-22] MEDS: IV NS 0.9% 1,000 ML IV PRN (10:21)
--- NOTE | 2018-10-22 10:45 | NUR ---
MS RN NOTES PATIENT US GUIDED THORACENTESIS NOT DONE PER DR EDGE, JAZZMINE NOT SAFE TO DO IT AND DR EDGE WILL NOTIFY DR LOVE. NOLA STOUT MADE AWARE AND ALSO NOTIFIED REGARDING ELEVATED BLOOD PRESSURE. PATIENT TO KEEP NPO PER NOLA STOUT.
--- NOTE | 2018-10-22 11:13 | NUR ---
MS RN NOTES RECEIVED NEW ORDER FROM DR LOVE FOR ATIVAN AND MORPHINE @1330 BEFORE THORACENTESIS, ORDER VERIFIED AND READ BACK. NOTED AND CARRIED OUT.
[2018-10-22] MEDS ORDERED: Magnesium 1GM/D5W 100ML PREMIX 100 ML IV SCH (11:30)
[2018-10-22] MEDS ORDERED: LORAZEPAM INJ 2 MG/ML VIAL IM ONE ×2 (13:30→14:30)
[2018-10-22] MEDS ORDERED: MORPHINE SULFATE INJ 2 MG/ML DISP.SYRIN IV ONE ×2 (13:30→14:30)
--- NOTE | 2018-10-22 13:30 | NUR ---
MS RN NOTES ATIVAN AND MORPHINE SCHEDULED TO BE GIVEN AT OPERATING ROOM.
--- NOTE | 2018-10-22 14:05 | NUR ---
MS RN NOTES PATIENT TAKEN FOR LIVER BIOPSY IN STABLE CONDITION.
[2018-10-22] MEDS ORDERED: IV NS 0.9% 250 ML IV ONE (14:26)
[2018-10-22 14:34] VITALS: BP 184/88
[2018-10-22 15:23] VITALS: BP 166/92
--- NOTE | 2018-10-22 16:25 | NUR ---
MS RN NOTES PATIENT CAME BACK FOR OPERATING ROOM , LIVER BIOPSY DONE. PATIENT IN STABLE CONDITION. LIVER BIOPSY SITE WITH BANDAGE, CLEAN , DRY AND INTACT.
--- NOTE | 2018-10-22 17:07 | NUR ---
MS RN NOTES CLARIFIED WITH BEVERAGE HOST DEE STOUT REGARDING DIET ORDERS, DISCONTINUE NPO AND RESUME PREVIOUS DIET. PATIENT FOR MRI TOMORROW IN AM, NPO AFTER MIDNIGHT TONIGHT. VERIFIED AND READ BACK ORDERS.
--- NOTE | 2018-10-22 19:00 | NUR ---
MS RN NOTES PATIENT IN BED ALERT ORIENTED X 1. NO ACUTE DISTRESS NOTED. BREATHING UNLABORED. NO SOB NOTED. IV ACCESS PATENT AND INTACT, NO REDNESS OR SWELLING NOTED. DUE MEDICATIONS GIVEN, NO ASE NOTED. NEEDS ATTENDED AND ANTICIPATED. KEPT CLEAN DRY AND COMFORTABLE. BANDAGE ON LIVER BIOPSY SITE INTACT, CLEAN AND DRY. SAFETY MEASURES IN PLACE. CALL LIGHT WITHIN REACH. ENDORSED TO NIGHT NURSE FOR CONTINUITY OF CARE.
[2018-10-22 20:00] VITALS: BP 161/80
[2018-10-22 20:06] VITALS: BP 161/80
--- NOTE | 2018-10-22 20:10 | NUR ---
RN OPENING NOTES RECEIVED PATIENT RESTING COMFORTABLY IN BED. SON AND DAUGHTER AT BED. PATIENT SHOWS NO SIGNS OF RESPIRATORY DISTRESS. NO SIGNS OF SHORTNESS OF BREATH. IV SITE INTACT. PATIENT SHOWS NO SIGNS OF PAIN OR DISCOMFORT AT THIS TIME. SAFETY PRECAUTIONS IMPLEMENTED. CALL LIGHT WITHIN REACH. WILL CONTINUE TO MONITOR PATIENT THROUGHOUT THE SHIFT.
--- NOTE | 2018-10-22 20:21 | NUR ---
MS RN CLOSING NOTES Patient comfortable and sleeping in bed. A/O x 1 with episodes of confusion. Guamanian speaking. VS stable with no acute distress. Breathing even and unlabored on room air with no respiratory distress. Denies pain. PIV on RIGHT FOREARM clean, dry and intact with IVF NS running at 75ml/hr. Mepilex on sacral area dry and intact. Safety precautions in place. Bed locked and set to lowest position with side rails x 2 up. All needs rendered at this time. Will endorse plan of care to oncoming shift.
[2018-10-22] MEDS: GABAPENTIN 300 MG CAPSULE PO SCH (21:40)
[2018-10-22] MEDS: INSULIN REGULAR, HUMAN 100 UNIT/ML 3 ML VIAL SQ PRN (21:53)
--- NOTE | 2018-10-22 21:53 | NUR ---
RN NOTES BLOOD SUGAR 141. PATIENT DID NOT EAT A LOT OF DINNER. WITHHELD REGULAR INSULIN BEFORE BEDTIME.
[2018-10-23 06:33] LABS: BASOPHILS % (AUTO) 0.3 % (0.0-2.0); EOSINOPHILS % (AUTO) 2.4 % (0.0-6.0); HEMATOCRIT 36 % (33-45); HEMOGLOBIN 12.2 g/dL (11.5-14.8); LYMPHOCYTES # (AUTO) 1.1 /CMM (0.8-4.8); LYMPHOCYTES % (AUTO) 17.4 % (20.0-44.0); MEAN CORPUSCULAR HGB CONC 34 g/dl (31.0-36.0); MEAN CORPUSCULAR VOLUME 86 fL (82-100); MONOCYTES # (AUTO) 0.9 /CMM (0.1-1.30); MONOCYTES % (AUTO) 15.1 % (2.0-12.0); NEUTROPHILS % (AUTO) 64.8 % (43.0-81.0); PLATELET COUNT (AUTO) 259 /CMM (150-450); WHITE BLOOD COUNT (AUTO) 6.1 K/uL (4.3-11.0)
[2018-10-23] MEDS: BLOOD SUGAR DIAGNOSTIC 1 EACH STRIP IN SCH ×3 (06:33→17:43)
[2018-10-23 06:54] LABS: CALCIUM, SERUM 8.3 mg/dL (8.5-10.1); CARBON DIOXIDE 23 mmol/L (21-32); CHLORIDE 104 mmol/L (98-107); CREATININE 0.6 mg/dL (0.6-1.3); GLUCOSE 113 mg/dL (74-106); MAGNESIUM 2.1 mg/dL (1.8-2.4); PHOSPHORUS 3.2 mg/dL (2.5-4.9); POTASSIUM 3.7 mmol/L (3.5-5.1); SODIUM SERUM 139 mmol/L (136-145); UREA NITROGEN, BLOOD 6 mg/dL (7-18)
--- NOTE | 2018-10-23 06:55 | NUR ---
RN CLOSING NOTES PATIENT IS RESTING COMFORTABLY IN BED. PATIENT SHOWS NO SIGNS OF RESPIRATORY DISTRESS. NO SIGNS OF SHORTNESS OF BREATH. IV SITE INTACT AND PATENT. PATIENT SHOWS NO SIGNS OF PAIN OR DISCOMFORT AT THIS TIME. WOUND TX IMPLEMENTED. SAFETY PRECAUTIONS IMPLEMENTED. CALL LIGHT WITHIN REACH. WILL ENDORSE TO ONCOMING SHIFT.
--- NOTE | 2018-10-23 07:31 | NUR ---
RN OPENING NOTE PT WAS RECEIVED IN BED AT LOWEST AND LOCKED POSITION WITH SIDE RAILS UP X2, BREATHING EVEN AND UNLABORED ON ROOM AIR, A/O X1 CONFUSED, NO S/S OF ANY DISTRESS OR PAIN NOTED AT THIS TIME, IV IS PATENT AND INTACT, SAFETY PRECAUTIONS IN PLACE, CALL LIGHT WITHIN REACH, WILL MONITOR ACCORDINGLY
[2018-10-23 08:00] VITALS: BP_SYST 162; BP_SYST 182; BP_DIAS 77; BP_DIAS 93
[2018-10-23] MEDS: MORPHINE SULFATE INJ 2 MG/ML DISP.SYRIN IV PRN ×2 (08:20→13:08)
[2018-10-23] MEDS: ASPIRIN EC 81 MG TABLET.DR PO SCH ×2 (09:00→17:04)
[2018-10-23] MEDS: LACTOBACILLUS RHAMNOSUS GG 1 EACH CAP.SPRINK PO SCH ×2 (09:00→16:47)
[2018-10-23] MEDS: DULOXETINE HCL 20 MG CAPSULE.DR PO SCH ×2 (09:00→17:04)
[2018-10-23] MEDS: QUETIAPINE FUMARATE 25 MG TABLET PO SCH ×2 (09:00→16:47)
[2018-10-23] MEDS: BENAZEPRIL HCL 20 MG TABLET PO SCH ×2 (09:00→17:04)
[2018-10-23] MEDS: AMLODIPINE BESYLATE 2.5 MG TABLET PO SCH ×2 (09:00→17:04)
--- NOTE | 2018-10-23 09:26 | NUR ---
RN NOTE MORNING MEDS HELD THIS MORNING DUE TO PT BEING NPO FOR MRI OF THE BRAIN WITH WITHOUT CONTRAST, MRI WAS CALLED MULTIPLE TIMES IN ORDER TO CLARIFY IF PT REALLY NEEDS TO BE NPO BUT NO ANSWER. WILL CONTINUE NPO STATUS AND MONITOR ACCORDINGLY
[2018-10-23] MEDS: Z GUARD REMEDY 2 OZ OINT TP SCH (09:33)
[2018-10-23] MEDS ORDERED: GADODIAMIDE 5 MMOL/10 ML VIAL ONE (10:16)
[2018-10-23 10:41] LABS: EOSINOPHILS % (MANUAL) 4 % (0-4); LYMPHOCYTES % (MANUAL) 13 % (16-48); MONOCYTES % (MANUAL) 14 % (0-11.0); NEUTROPHILS % (MANUAL) 69 (42-76)
[2018-10-23] MEDS: INSULIN REGULAR, HUMAN 100 UNIT/ML 3 ML VIAL SQ PRN ×2 (11:49→17:41)
--- NOTE | 2018-10-23 11:49 | NUR ---
RN NOTE PT BLOOD SUGAR WAS TAKEN AND NOTED TO BE 137, NO INSULIN GIVEN DUE TO THE PT BEING NPO THIS MORNING. WILL MONITOR PT ACCORDINGLY
--- NOTE | 2018-10-23 15:30 | NUR ---
RN NOTE REPORT GIVEN TO STEFANY AT [facility] AT THIS TIME
[2018-10-23 16:00] VITALS: BP 196/81
[2018-10-23] MEDS ORDERED: hydrALAZINE HCL IV 20 MG VIAL IV STA (16:39)
--- NOTE | 2018-10-23 16:50 | NUR ---
RN NOTE DEE STOUT HYDRO PLANT SITE MANAGER NOTIFIED OF PT BP OF 196/81, ONE TIME DOSE OF IV HYDRALAZINE ORDER AND SHE STATED IT WAS OKAY TO GIVE ALL AM MEDS SINCE PT WAS NPO. WILL IMPLEMENT AND MONITOR ACCORDINGLY
[2018-10-23 17:04] VITALS: BP 196/81
--- NOTE | 2018-10-23 18:33 | NUR ---
DISCHARGE NOTE PT WAS D/C AT THIS TIME TO [facility] WHERE REPORT WAS GIVEN TO STEFANY. IV AND ID BAND WERE REMOVED. ALL D/C PAPERWORK, EXITCARE, AND BELONGING LIST WERE DISCUSSED AND SIGNED. ALL PAPERWORK WAS HANDED TO THE EMT CREW. ALL BELONGINGS WERE HANDED TO THE EMT CREW WELL. PHOTOS OF SKIN WERE TAKEN AND PLACED IN THE CHART. ALL NEEDS WERE ATTENDED TO DURING HER STAY. PT LEAVING WITH EMT CREW AT THIS TIME.
== END 2018-10-23 18:30 | DRG 542 ==
LOC: ER 20:31 → MEDSG2 23:08
PROVIDERS: ADMIT Nurse Practitioner Acute Care; ATTEND Nurse Practitioner Acute Care
PROC: 0FD13ZX Extraction of Right Lobe Liver, Percutaneous Approach, Diagnostic (ICD-10-PCS; principal; 2018-10-22)
DX: C79.51 Secondary malignant neoplasm of bone (principal); G93.41 Metabolic encephalopathy; N17.0 Acute kidney failure with tubular necrosis; J90 Pleural effusion, not elsewhere classified; E87.2 Acidosis; J98.11 Atelectasis; F02.81 Dementia in other diseases classified elsewhere, unspecified severity, with behavioral disturbance; C78.7 Secondary malignant neoplasm of liver and intrahepatic bile duct; C79.31 Secondary malignant neoplasm of brain; C78.02 Secondary malignant neoplasm of left lung; C78.01 Secondary malignant neoplasm of right lung; G30.9 Alzheimer's disease, unspecified; E87.5 Hyperkalemia; E86.0 Dehydration; Z90.49 Acquired absence of other specified parts of digestive tract; I10 Essential (primary) hypertension; F32.9 Major depressive disorder, single episode, unspecified; L85.3 Xerosis cutis; K59.00 Constipation, unspecified; S91.104A Unspecified open wound of right lesser toe(s) without damage to nail, initial encounter; X58.XXXA Exposure to other specified factors, initial encounter; Y93.9 Activity, unspecified; Y92.009 Unspecified place in unspecified non-institutional (private) residence as the place of occurrence of the external cause; L89.150 Pressure ulcer of sacral region, unstageable; C80.1 Malignant (primary) neoplasm, unspecified; E11.9 Type 2 diabetes mellitus without complications
CPT/HCPCS: 36415; 47000; 70450-TC; 70553-TC; 71250-TC; 73130-TC; 76604-TC; 76942-TC; 77012-TC; 80048-TC; 80061-TC; 80076-TC; 80202-TC; 81000-TC; 82105; 82378; 82962-TC; 83605-TC; 83690-TC; 83735-TC; 84100-TC; 85025-TC; 85610-TC; 85652-TC; 85730-TC; 86140-TC; 86300; 86301; 86304; 87040-TC; 87081-TC; 87086-TC; 88307-TC; 88313-TC; 88342; 97530-TC; A9579; G0378; J0360; J0696; J1815; J2060; J2250; J2270; J2310; J3010; J3370; J3475; J7030; J7040; J7050; J7060; Q9967

== ENCOUNTER 2018-12-01 17:36 | Inpatient (IN) | payer MEDICARE, MEDICAID ==
[~2018-12-01] VITALS: Ht 144.8 cm; Wt 43.1 kg
[~2018-12-01 17:36] MED LIST: AMLO2.5T4 PO; ASPI-605 PO; BENA40TA8 PO; DULO20CA PO; GABA-534 PO; METF-440 PO; QUET50TA PO
--- NOTE | 2018-12-01 17:49 | NUR ---
[facility], PER REPORT FEVER. FAILURE TO THRIVE. TYL SUPPOSITORY GIVEN JAVA DEVELOPMENT MANAGER, SENT BY PMD FOR MEDICAL EVAL. PT IS NONVERBAL, NONAMBULATORY, RR EVEN AND UNLABORED SATTING AT 90% ON RA. PLACED ON 2L NC. 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 WEARS ADULT DIAPER. ON MONITOR AND MADE COMFORTABLE. READY FOR EVAL.
[2018-12-01] MEDS ORDERED: LEVOFLOXACIN 750 MG /D5W 150ML 150 ML IV ONE ×2 (18:00)
[2018-12-01] MEDS ORDERED: IBUPROFEN 600 MG TABLET PO ONE (18:00)
[2018-12-01] MEDS ORDERED: IV NS 0.9% 1,000 ML BAG IV ONE ×2 (18:00→19:00)
[2018-12-01] MEDS ORDERED: PROT946L PO (18:12)
[2018-12-01] MEDS ORDERED: MAG-5 PO (18:12)
[2018-12-01] MEDS ORDERED: NA P133E RC (18:12)
[2018-12-01] MEDS ORDERED: BISA10SU61 RC (18:12)
[2018-12-01] MEDS ORDERED: ASPI-605 PO (18:12)
[2018-12-01] MEDS ORDERED: QUET25TA PO (18:12)
[2018-12-01] MEDS ORDERED: TYL2T PO (18:12)
[2018-12-01] MEDS ORDERED: MAGN400O6 PO (18:12)
[2018-12-01] MEDS ORDERED: MULT-447 PO (18:12)
[2018-12-01] MEDS ORDERED: ASCO500C18 PO (18:12)
[2018-12-01] MEDS ORDERED: BENA40TA8 PO (18:12)
[2018-12-01] MEDS ORDERED: ARGI1POW13 PO (18:12)
[2018-12-01] MEDS ORDERED: TRAM50TA PO (18:12)
[2018-12-01] MEDS ORDERED: GABA-534 PO (18:12)
[2018-12-01] MEDS ORDERED: DULO20CA PO (18:12)
[2018-12-01] MEDS ORDERED: METF-440 PO (18:12)
[2018-12-01 18:23] LABS: BASOPHILS # (AUTO) 0.1 /CMM (0.0-0.2); BASOPHILS % (AUTO) 0.4 % (0.0-2.0); EOSINOPHILS % (AUTO) 0.1 % (0.0-6.0); HEMATOCRIT 46 % (33-45); HEMOGLOBIN 14.4 g/dL (11.5-14.8); LYMPHOCYTES # (AUTO) 1.2 /CMM (0.8-4.8); LYMPHOCYTES % (AUTO) 6.9 % (20.0-44.0); MEAN CORPUSCULAR HGB CONC 31 g/dl (31.0-36.0); MEAN CORPUSCULAR VOLUME 90 fL (82-100); MONOCYTES # (AUTO) 1.3 /CMM (0.1-1.30); MONOCYTES % (AUTO) 7.2 % (2.0-12.0); NEUTROPHILS # (AUTO) 15.1 /CMM (1.8-8.9); NEUTROPHILS % (AUTO) 85.4 % (43.0-81.0); PLATELET COUNT (AUTO) 324 /CMM (150-450); WHITE BLOOD COUNT (AUTO) 17.6 K/uL (4.3-11.0)
--- NOTE | 2018-12-01 18:27 | NUR ---
XRAY AT BEDSIDE
[2018-12-01 18:36] LABS: POTASSIUM 4.3 mmol/L (3.5-5.1)
--- NOTE | 2018-12-01 18:38 | NUR ---
URINE COLLECTED VIA STRAIGHT CATH PER PROTOCOL AND SENT TO STAT LAB
[2018-12-01 18:39] LABS: APPEARANCE,URINE Slightly Cloudy (CLEAR); BILIRUBIN,URINE SMALL (NEGATIVE); BLOOD, URINE Negative Ery/uL (NEGATIVE); KETONES,URINE Trace (NEGATIVE); LEUKOCYTE ESTERASE ,URINE Negative (NEGATIVE); NITRITE, URINE Negative (NEGATIVE); PROTEIN,URINE Negative (NEGATIVE); UGLUCOSE Negative (NEGATIVE); UROBILINOGEN,URINE 0.2 EU/dL (0.2)
[2018-12-01 18:45] LABS: ALANINE AMINOTRANSFERASE 37 U/L (12-78); ALBUMIN 2.5 g/dL (3.4-5.0); ALKALINE PHOSPHATASE 310 U/L (46-116); ASPARTATE AMINOTRANSFERASE 83 U/L (15-37); BILIRUBIN,DIRECT 0.3 mg/dL (0.0-0.2); BILIRUBIN,TOTAL 1.1 mg/dL (0.2-1.0); CALCIUM, SERUM 9.9 mg/dL (8.5-10.1); CARBON DIOXIDE 23 mmol/L (21-32); CHLORIDE 111 mmol/L (98-107); CREATININE 3.1 mg/dL (0.6-1.3); GLUCOSE 282 mg/dL (74-106); SODIUM SERUM 154 mmol/L (136-145); TOTAL PROTEIN, SERUM 7.4 g/dL (6.4-8.2); UREA NITROGEN, BLOOD 94 mg/dL (7-18)
[2018-12-01] MEDS ORDERED: PIPERACILLIN /TAZOBACTAM 3.375 G in IV D5W 50 ML IV ONE (19:00)
--- NOTE | 2018-12-01 19:02 | NUR ---
CALLED [facility] DATA SUPPORT ANALYST INTERNET NETWORK SPECIALIST. WAS PAGED.
--- NOTE | 2018-12-01 19:34 | NUR ---
CALLED DR LEMONS AT [phone] AND LEFT A MESSAGE FOR HIM
[2018-12-01 19:36] LABS: COLOR,URINE Dark Yellow (YELLOW)
[2018-12-01 19:38] LABS: BACTERIA,URINE Moderate /HPF (None Seen); RBC,URINE 0-2 /HPF (0-2); WBC,URINE 0-2 /HPF (0-3)
[2018-12-01 19:39] LABS: HYALINE CASTS, URINE Few /LPF (None Seen); MUCUS,URINE Moderate /LPF (None Seen); SQUAMOUS EPITHELIAL CELL,UR Few /HPF (None Seen)
--- NOTE | 2018-12-01 19:39 | NUR ---
CALLED [facility]. PORK CUTLET MAKER WAS PAGED.
--- NOTE | 2018-12-01 19:53 | NUR ---
CALLED [facility] FOR ICU BED
--- NOTE | 2018-12-01 19:54 | NUR ---
ICU BED 251 GIVEN
[2018-12-01] MEDS ORDERED: PIPERACILLIN /TAZOBACTAM 3.375 G VIAL IV ONE (19:56)
[2018-12-01] MEDS ORDERED: NOREPINEPHRINE 8 MG in IV D5W 500 ML IV PRN (20:00)
[2018-12-01] MEDS: LEVOFLOXACIN 250 MG /D5W 50 ML 50 ML IV SCH (20:00)
[2018-12-01] MEDS ORDERED: IV NS 0.9% 1,000 ML IV SCH (20:00)
[2018-12-01] MEDS ORDERED: PROPOFOL 100 ML IV PRN (20:00)
[2018-12-01] MEDS ORDERED: DEXTROSE 50%-WATER 50 ML DISP.SYRIN IV PRN (20:00)
[2018-12-01] MEDS ORDERED: ACETAMINOPHEN 650 MG/SUPP.RECT RC PRN (20:00)
[2018-12-01] MEDS ORDERED: ONDANSETRON HCL/PF 4 MG/2 ML VIAL IVP PRN (20:00)
--- NOTE | 2018-12-01 20:11 | NUR ---
FAMILY AT BEDSIDE
[2018-12-01 20:29] LABS: BAND % (MANUAL) 2 % (0.0-5.0); LYMPHOCYTES % (MANUAL) 6 % (16-48); MONOCYTES % (MANUAL) 5 % (0-11.0); NEUTROPHILS % (MANUAL) 87 (42-76)
--- NOTE | 2018-12-01 20:42 | NUR ---
REPORT GIVEN TO MARIAH BHATT FOR ICU 251
--- NOTE | 2018-12-01 20:57 | NUR ---
[facility]
[2018-12-01 21:04] LABS: ABG BASE EXCESS -5.7 mmol/L; ABG OXYGEN SATURATION 98.3 % (92.0-98.5); ABG PCO2 23.6 mmHg (35.0-45.0); ABG PH 7.459 (7.350-7.450); ABG PO2 145.2 mmHg (75.0-100.0); AaDO2 112.9 mmHg; COHb 0.2 % (0.5-1.5); MetHb 0.7 % (0.0-1.5); O2Hb 97.4 % (94.0-97.0); SITE, ABG Right Radial; VENT MODE, BG NC 5L
[2018-12-01 21:14] VITALS: BP 113/91
[2018-12-01 21:30] VITALS: BP 90/43
--- NOTE | 2018-12-01 21:35 | NUR ---
PI/SENIOR RESEARCH ASSOCIATE NOTES LACTIC ACID = 5.3 FROM 5.7. RELAYED TO MEHRAN CRONIN SURFBOARD MAKER, WITH ORDER FOR 1 LITER NS BOLUS. MEHRAN ALSO WITH ORDER TO DC NGT INSERTION AND KUB SINCE PATIENT WAS NOT INTUBATED IN ER. NEW ORDER FOR SOFT RIGHT WRIST RESTRAINT SINCE PATIENT IS CONTINUOUSLY PULLING NASAL CANNULA AND LEADS
[2018-12-01 21:56] VITALS: BP 99/55
[2018-12-01 22:00] VITALS: BP 98/50
[2018-12-01] MEDS ORDERED: MAG HYDROX/AL HYDROX/SIMETH 30 ML UDC PO PRN (22:00)
[2018-12-01] MEDS ORDERED: BISACODYL SUPP (10 MG) 10 MG/SUPP.RECT SUPP.RECT RC PRN (22:00)
[2018-12-01] MEDS ORDERED: GABAPENTIN 300 MG CAPSULE PO SCH (22:00)
[2018-12-01] MEDS ORDERED: ACETAMINOPHEN 325 MG TABLET PO PRN (22:00)
[2018-12-01] MEDS ORDERED: IV NS 0.9% 1,000 ML IV ONE (22:00)
[2018-12-01] MEDS ORDERED: TRAMADOL HCL 50 MG TABLET PO PRN (22:00)
[2018-12-01] MEDS ORDERED: MAGNESIUM HYDROXIDE 30 ML UDC PO PRN (22:00)
[2018-12-01 22:30] VITALS: BP 95/55
[2018-12-01 23:00] VITALS: BP 109/54
[2018-12-02] VITALS (20 sets, daily range): BP systolic 96–157; BP diastolic 54–89
[2018-12-02] MEDS: BLOOD SUGAR DIAGNOSTIC 1 EACH STRIP IN SCH ×5 (00:07→23:58)
[2018-12-02] MEDS: INSULIN REGULAR, HUMAN 100 UNIT/ML 3 ML VIAL SQ PRN ×3 (00:09→18:26)
[2018-12-02] MEDS: IPRATROPIUM NEB FS 0.5 MG/2.5 ML AMPUL.NEB NEB SCH ×4 (01:49→19:41)
[2018-12-02] MEDS: ALBUTEROL FS 2.5 MG/0.5 ML VIAL.NEB NEB SCH ×4 (01:49→19:41)
[2018-12-02 04:41] LABS: BASOPHILS % (AUTO) 0.2 % (0.0-2.0); EOSINOPHILS % (AUTO) 0.1 % (0.0-6.0); HEMATOCRIT 33 % (33-45); HEMOGLOBIN 10.7 g/dL (11.5-14.8); LYMPHOCYTES # (AUTO) 1.3 /CMM (0.8-4.8); LYMPHOCYTES % (AUTO) 7.8 % (20.0-44.0); MEAN CORPUSCULAR HGB CONC 32 g/dl (31.0-36.0); MEAN CORPUSCULAR VOLUME 91 fL (82-100); MONOCYTES # (AUTO) 1.1 /CMM (0.1-1.30); NEUTROPHILS # (AUTO) 13.9 /CMM (1.8-8.9); NEUTROPHILS % (AUTO) 84.9 % (43.0-81.0); PLATELET COUNT (AUTO) 184 /CMM (150-450); RED BLOOD CELL COUNT(AUTO) 3.67 MIL/uL (4.0-5.2); WHITE BLOOD COUNT (AUTO) 16.4 K/uL (4.3-11.0)
[2018-12-02 04:56] LABS: ALANINE AMINOTRANSFERASE 26 U/L (12-78); ALBUMIN 1.6 g/dL (3.4-5.0); ALKALINE PHOSPHATASE 242 U/L (46-116); ASPARTATE AMINOTRANSFERASE 60 U/L (15-37); BILIRUBIN,TOTAL 0.7 mg/dL (0.2-1.0); CALCIUM, SERUM 7.9 mg/dL (8.5-10.1); CARBON DIOXIDE 21 mmol/L (21-32); CHLORIDE 120 mmol/L (98-107); CREATININE 2.3 mg/dL (0.6-1.3); GLUCOSE 214 mg/dL (74-106); POTASSIUM 3.5 mmol/L (3.5-5.1); TOTAL PROTEIN, SERUM 4.9 g/dL (6.4-8.2)
[2018-12-02 05:10] LABS: SODIUM SERUM 156 mmol/L (136-145); UREA NITROGEN, BLOOD 83 mg/dL (7-18)
[2018-12-02] MEDS ORDERED: IV D5/0.45 NACL 1,000 ML IV PRN (06:00)
--- NOTE | 2018-12-02 06:00 | NUR ---
COAT FITTER NOTES SODIUM LEVEL 156. RELAYED RESULT TO MEHRAN CRONIN GAUGER CHIEF, WITH ORDER TO CHANGE IVF FROM NS @ 100ML/HR TO D51/2 NS @ 100ML/HR. WILL CARRY OUT NEW ORDERS AND CONTINUE CLOSE MONITORING
--- NOTE | 2018-12-02 07:15 | NUR ---
HOT MILL WORKER OPENING NOTE RECEIVED REPORT FROM PM NURSE.PATIENT ALERT ,DISORIENTED NAURUAN SPEAKING.ON O2 3L VIA NASAL CANULA.MILD TACHYPNEA NOTED.VITAL SIGNS STABLE.IV ON R HAND AND R AC INTACT AND PATENT.F/C DRAINING CLEAR YELLOW URINE.SAFETY ASPIRATION PRECAUTIONS IN PLACE.WILL CONTINUE TO MONITOR.
[2018-12-02] MEDS ORDERED: SUCCINYLCHOLINE CHLORIDE 20 MG/ML VIAL IV ONE (08:00)
[2018-12-02] MEDS ORDERED: ETOMIDATE 2 MG/ML VIAL IV ONE (08:00)
[2018-12-02] MEDS: PROSOURCE / PROSTAT (PYXIS) 30 ML UDC PO SCH (09:00)
[2018-12-02] MEDS ORDERED: PANTOPRAZOLE 40 MG VIAL IV SCH (09:00)
[2018-12-02] MEDS ORDERED: MULTIVIT W/MINERALS 1 TAB TABLET PO SCH (09:00)
[2018-12-02] MEDS ORDERED: ASCORBIC ACID 500 MG TABLET PO SCH (09:00)
[2018-12-02] MEDS ORDERED: Medication Not On Formulary EA (Arginine/Ascorbate Sod/Vite AC (Arginaid Powder) 1 EACH) PO SCH (09:00)
[2018-12-02] MEDS ORDERED: ASPIRIN EC 81 MG TABLET.DR PO SCH (09:00)
--- NOTE | 2018-12-02 10:00 | NUR ---
ECMO SPECIALIST NOTE SEEN BY ,UPDATED ABOUT PATIENT CONDITION WITH TROPONIN VALUES.OK TO TRANSFER TO [facility].
[2018-12-02] MEDS: IV NS 0.9% 1,000 ML IV SCH ×3 (10:07→18:24)
[2018-12-02] MEDS: NYSTATIN (PYXIS) 500,000 UNIT/5 ML ORAL.SUSP PO SCH ×3 (10:08→18:23)
[2018-12-02] MEDS: FAMOTIDINE/PF INJ 20 MG/2 ML VIAL IV SCH ×2 (10:08→18:23)
--- NOTE | 2018-12-02 10:30 | NUR ---
SECURITY INTERN NOTE SEEN BY ,UPDATED ABOUT PATIENT CONDITION WITH LABS,GOT NEW ORDER FOR MORPHINE 2MG IV Q4H PRN.
[2018-12-02] MEDS: MORPHINE SULFATE INJ 2 MG/ML DISP.SYRIN IV PRN ×3 (10:53→20:44)
--- NOTE | 2018-12-02 11:00 | NUR ---
WOODEN FENCE ERECTOR NOTE SEEN BY IMTIAZ ADAMS DONE,RELAYED RESULT .WAIT FOR AFTERNOON TO TRANSFER,HE IS GOING TO SEE HER IN THE AFTERNOON.
[2018-12-02 11:18] LABS: ABG BASE EXCESS -7.2 mmol/L; ABG OXYGEN SATURATION 89.5 % (92.0-98.5); ABG PCO2 30.9 mmHg (35.0-45.0); ABG PH 7.361 (7.350-7.450); ABG PO2 64.4 mmHg (75.0-100.0); AaDO2 48.3 mmHg; COHb 0.3 % (0.5-1.5); MetHb 0.7 % (0.0-1.5); O2Hb 88.6 % (94.0-97.0); SITE, ABG Right Radial; VENT MODE, BG ROOM AIR
--- NOTE | 2018-12-02 12:00 | NUR ---
RIDES SUPERVISOR NOTE SEEN BY NOLA SALDANA FROM WOUND CARE,NO F/U FOR L HAND ,ONCOLOGY WILL F/U. WILL BE HERE IN AFTERNOON,WILL ASK IF HE RECOMMENDED X RAY.
[2018-12-02] MEDS ORDERED: VANCOMYCIN 500 MG in IV D5W 100 ML IV SCH (13:00)
[2018-12-02] MEDS: HYDROGEL DRESSING 90 GM TUBE TP SCH ×2 (13:09→20:53)
[2018-12-02] MEDS: Z GUARD REMEDY 2 OZ OINT TP SCH ×2 (13:10→20:52)
[2018-12-02] MEDS ORDERED: FEE PK DOSING 1 MIN EA MC ONE (13:13)
[2018-12-02] MEDS ORDERED: LIDOCAINE 1%-EPI 1:100,000 20 ML VIAL TP ONE (15:00)
--- NOTE | 2018-12-02 15:00 | NUR ---
CHIEF MINISTER NOTE SEEN BY FIOR ADAMS TO TRANSFER TO TELE.
[2018-12-02] MEDS ORDERED: BISACODYL SUPP (10 MG) 10 MG/SUPP.RECT SUPP.RECT RC PRN (15:03)
--- NOTE | 2018-12-02 15:17 | NUR ---
SENIOR ECONOMISTNUCLEAR POWERPLANT MECHANIC NOTES Received Patient awake and moaning. A/O x 1. VS stable with no acute distress. Breathing even and unlabored on 1LPM via NC, SPO2 100%. Patient noted moaning and facial grimacing upon repositioning. Will intervene for pain management as ordered. Telemonitor in place and operational, reading SR-89. Fierro cath in place and operational with clear, yellow urine output. 18g PIV RIGHT HAND clean, dry, intact and flushing well. 20g PIV clean, dry, intact and flushing well with NS running at 250ml/hr (Bag 2/3). Noted LEFT HAND edema, elevated with pillow. RIGHT HAND soft restraint in place. Noted skin WNL, cap refill<3sec. Skin assessment compared with previous skin assessment pictures. Wound documentation completed per protocol. Safety precautions in place and operational. Bed locked and set to lowest position with side rails x 2 up. Son at bedside. Will continue to monitor. Addendum: 12/02/18 at 2004 by JATINDER CONTRERAS RN ERROR, WRONG TIME.
--- NOTE | 2018-12-02 15:45 | NUR ---
SENIOR ENGINEER NOTE SEEN BY NOLA SALDANA WOUND CARE,SACRAL WOUND DEBRIDEMENT DONE.OBTAINED VERBAL CONSENT CONSENT FROM DAUGHTER JAK,2 NURSES WITNESSED.
--- NOTE | 2018-12-02 16:47 | NUR ---
TOWER ERECTOR NOTE REPORT GIVEN TO ENDY LEMUS AT 3W.SEEN BY SPEECH THERAPIST.OK TO HAVE PUREE DIET WITH REGULAR WATER.SHE WILL PLACE ORDERS. Addendum: 12/02/18 at 1723 by PHILIPPE RDZ RN REPORT GIVEN TO BELLA LEMUS
--- NOTE | 2018-12-02 17:15 | NUR ---
MOLASSES PREPARERBELLING MACHINE OPERATOR NOTE PATIENT TRANSFERRED TO 3W,TELE WITH ACLS PROTOCOL.PATIENT IS ALERT WITH CONFUSION.VITAL SIGNS STABLE.ON O2 1L VIA NASAL CANULA.SATURATING 100%.REPORT GIVEN TO JA LEMUS.
--- NOTE | 2018-12-02 17:17 | NUR ---
DAIRY FARMERSTABLE MANAGER NOTES Received Patient awake and moaning. A/O x 1. VS stable with no acute distress. Breathing even and unlabored on 1LPM via NC, SPO2 100%. Patient noted moaning and facial grimacing upon repositioning. Will intervene for pain management as ordered. Telemonitor in place and operational, reading SR-89. Fierro cath in place and operational with clear, yellow urine output. 18g PIV RIGHT HAND clean, dry, intact and flushing well. 20g PIV clean, dry, intact and flushing well with NS running at 250ml/hr (Bag 2/3). Noted LEFT HAND edema, elevated with pillow. RIGHT HAND soft restraint in place. Noted skin WNL, cap refill<3sec. Skin assessment compared with previous skin assessment pictures. Wound documentation completed per protocol. Safety precautions in place and operational. Bed locked and set to lowest position with side rails x 2 up. Son at bedside. Will continue to monitor
--- NOTE | 2018-12-02 19:48 | NUR ---
[employer] FIELD COORDINATOR NOTES RECEIVED PATIENT AWAKE IN BED WITH NO DISTRESS NOTED. CALL LIGHT WITHIN REACH. NO FACIAL GRIMACING OR GROANING TO INDICATE PAIN OR DISCOMFORT. PERIPHERAL LINE INTACT AND PATENT. LEFT ARM ELEVATED VIA PILLOW D/T SWELLING. RIGHT ARM SOFT WRIST RESTRAINT IN PLACE, WITH NO NEW SKIN BREAKDOWN OR DISCOLORATION AND NOTED WITH GOOD CIRCULATION. BED IN LOW LOCK SETTING. BED ALARM ON AND FUNCTIONING PROPERLY. ALL BELONGINGS KEPT NEAR BEDSIDE. WILL CONTINUE TO MONITOR.
--- NOTE | 2018-12-02 20:05 | NUR ---
ASSOCIATE PROFESSOR OF KINESIOLOGY CLOSING NOTES Patient asleep and resting in bed. A/O x 1. VS stable with no acute distress. Breathing even and unlabored on 1LPM via NC, SPO2 100%. No signs and symptoms of pain. Telemonitor in place and operational, reading SR-86 with PAC. Fierro cath in place and operational with clear, yellow urine output. 18g PIV RIGHT HAND clean, dry, intact and flushing well. 20g PIV clean, dry, intact and flushing well with NS running at 250ml/hr (Bag 2/3). Noted LEFT HAND edema, elevated with pillow. RIGHT HAND soft restraint in place. Noted skin WNL, cap refill<3sec. Safety precautions in place and operational. Bed locked and set to lowest position with side rails x 2 up. Will endorse plan of care to oncoming shift.
[2018-12-02] MEDS: PIPERACILLIN /TAZOBACTAM 3.375 G in IV D5W 50 ML IV SCH (20:33)
--- NOTE | 2018-12-02 23:30 | NUR ---
TELERN SLEEPING OF THIS TIME, APPEARS COMFORTABLE. IVF TO CONSUME. REMAINS SR ON THE MONITOR, CLOSELY WATCHED.
--- NOTE | 2018-12-02 23:40 | NUR ---
TELERN ASLEEP, IVF ON PROGRESS. LEON TO GRAVITY, CLEAR CASTRO COLORED URINE OUTPUT, MONITORED. APPEARS COMFORTBLE FOR NOW, SR ON THE MONITOR. CLOSELY WATCHED.
[2018-12-03] VITALS: BP 155/78
[2018-12-03] MEDS: ALBUTEROL FS 2.5 MG/0.5 ML VIAL.NEB NEB SCH ×4 (01:35→19:25)
[2018-12-03] MEDS: IPRATROPIUM NEB FS 0.5 MG/2.5 ML AMPUL.NEB NEB SCH ×4 (01:35→19:25)
[2018-12-03 04:00] VITALS: BP 155/95
[2018-12-03] MEDS: MORPHINE SULFATE INJ 2 MG/ML DISP.SYRIN IV PRN ×2 (04:36→10:32)
--- NOTE | 2018-12-03 04:43 | NUR ---
TELERN APPEARS TO BE IN PAIN, MOANING,REFUSED TO BE TOUCH, CRYING. BP ELEVATED, MORPHINE 2MG IVP ADMINISTERED FOR PAIN. PATIENT RECENTLY HAD DEBRIDEMENT OF SACRAL DECUB. LEFT ARM CELLULITIS. REPOSITIONED, KEPT COMFORTABLE.
[2018-12-03] MEDS: BLOOD SUGAR DIAGNOSTIC 1 EACH STRIP IN SCH ×3 (06:21→17:52)
[2018-12-03] MEDS: INSULIN REGULAR, HUMAN 100 UNIT/ML 3 ML VIAL SQ PRN ×2 (06:22→17:44)
--- NOTE | 2018-12-03 06:41 | NUR ---
telern bs 168 covered with 3 units reg insulin sq as per sliding scale. repositioned per patients comfort. iv to hl
[2018-12-03 06:43] LABS: EOSINOPHILS % (AUTO) 0.2 % (0.0-6.0); HEMATOCRIT 37 % (33-45); HEMOGLOBIN 11.6 g/dL (11.5-14.8); LYMPHOCYTES # (AUTO) 0.6 /CMM (0.8-4.8); LYMPHOCYTES % (AUTO) 2.7 % (20.0-44.0); MEAN CORPUSCULAR HGB CONC 32 g/dl (31.0-36.0); MEAN CORPUSCULAR VOLUME 90 fL (82-100); MONOCYTES % (AUTO) 4.7 % (2.0-12.0); NEUTROPHILS # (AUTO) 19.9 /CMM (1.8-8.9); NEUTROPHILS % (AUTO) 92.4 % (43.0-81.0); PLATELET COUNT (AUTO) 191 /CMM (150-450); RED BLOOD CELL COUNT(AUTO) 4.08 MIL/uL (4.0-5.2); WHITE BLOOD COUNT (AUTO) 21.6 K/uL (4.3-11.0)
[2018-12-03 06:52] LABS: THYROID STIMULATING HORMONE 4.554 uIU/mL (0.358-3.74)
[2018-12-03 08:00] VITALS: BP 163/81
[2018-12-03 08:24] LABS: ALANINE AMINOTRANSFERASE 27 U/L (12-78); ALBUMIN 1.7 g/dL (3.4-5.0); ALKALINE PHOSPHATASE 533 U/L (46-116); ASPARTATE AMINOTRANSFERASE 94 U/L (15-37); BILIRUBIN,TOTAL 0.9 mg/dL (0.2-1.0); CALCIUM, SERUM 8.2 mg/dL (8.5-10.1); CARBON DIOXIDE 18 mmol/L (21-32); CHLORIDE 123 mmol/L (98-107); CREATININE 1.5 mg/dL (0.6-1.3); GLUCOSE 174 mg/dL (74-106); MAGNESIUM 1.5 mg/dL (1.8-2.4); PHOSPHORUS 3.3 mg/dL (2.5-4.9); POTASSIUM 3.2 mmol/L (3.5-5.1); TOTAL PROTEIN, SERUM 5.2 g/dL (6.4-8.2); UREA NITROGEN, BLOOD 54 mg/dL (7-18)
[2018-12-03 08:28] LABS: SODIUM SERUM 157 mmol/L (136-145)
[2018-12-03] MEDS: NYSTATIN (PYXIS) 500,000 UNIT/5 ML ORAL.SUSP PO SCH ×4 (09:00→16:54)
[2018-12-03] MEDS: PROSOURCE / PROSTAT (PYXIS) 30 ML UDC PO SCH (09:00)
--- NOTE | 2018-12-03 09:48 | NUR ---
WOUND CARE CONSULT: PT FOLLOWED BY PLASTIC SURGERY TEAM FOR SACRAL WOUND. DEFER TO SURGICAL TEAM FOR WOUND TREATMENT PLAN. PER NURSING STAFF, PT NOTED TO HAVE HEEL AND LEFT LOWER LEG DEEP TISSUE INJURIES, PRESENT ON ADMISSION. RECOMMEND DPM CONSULT. DR BOLIVAR NOTIFIED OF DPM CONSULT REQUEST. DEFER TO DPM FOR LOWER EXTREMITIES. PT ON RONI ISOFLEX LOW AIRLOSS BED. WILL SEE PRN. IN AGREEMENT WITH PLAN OF CARE.
[2018-12-03] MEDS: PIPERACILLIN /TAZOBACTAM 3.375 G in IV D5W 50 ML IV SCH ×2 (10:08→21:10)
[2018-12-03] MEDS: HYDROGEL DRESSING 90 GM TUBE TP SCH ×2 (10:08→21:11)
[2018-12-03] MEDS: Z GUARD REMEDY 2 OZ OINT TP SCH ×2 (10:08→21:11)
[2018-12-03] MEDS: FAMOTIDINE/PF INJ 20 MG/2 ML VIAL IV SCH ×2 (10:11→17:38)
--- NOTE | 2018-12-03 10:45 | NUR ---
labs called to nancy vessel engineer-orders to be written.
[2018-12-03] MEDS ORDERED: POTASSIUM CHLORIDE 20 MEQ TAB.PRT.SR PO ONE (11:00)
[2018-12-03] MEDS: IV NS 0.9% 1,000 ML IV PRN (12:03)
[2018-12-03] MEDS: Magnesium 1GM/D5W 100ML PREMIX 100 ML IV SCH ×2 (12:14→13:24)
--- NOTE | 2018-12-03 12:21 | NUR ---
sliding scale coverage held as pt. not eating,spitting out food.
[2018-12-03] MEDS: POTASSIUM CL. PREMIX PERIPHER. 50 ML IV SCH ×4 (14:35→20:13)
[2018-12-03] MEDS ORDERED: VANCOMYCIN 500 MG in IV D5W 100 ML IV SCH (15:00)
[2018-12-03 16:00] VITALS: BP 131/78
--- NOTE | 2018-12-03 18:00 | NUR ---
MG,AND POTASSIUM REPLACEMENTS GIVEN.FAMILY AT BEDSIDE SEVERAL TIMES TODAY.
--- NOTE | 2018-12-03 19:30 | NUR ---
MS RN OPENING NOTES Received patient intermittently asleep on semi-Tello's position on bed. On O2 inhalation via NC @2LPM, no SOB/respiratory distress noted. No signs of pain/discomfort noted at this time. With R soft wrist restraint. With FC indwelling with clear urine output noted. Kept bed low and locked, siderails up, call light within easy reach. Will continue to monitor accordingly.
[2018-12-03 20:00] VITALS: BP 149/65
[2018-12-03] MEDS: LEVOFLOXACIN 250 MG /D5W 50 ML 50 ML IV SCH (20:21)
[2018-12-03 20:38] VITALS: BP 149/65
[2018-12-04] MEDS: MORPHINE SULFATE INJ 2 MG/ML DISP.SYRIN IV PRN (00:02)
[2018-12-04] MEDS: IV NS 0.9% 1,000 ML IV PRN (00:02)
[2018-12-04] MEDS: BLOOD SUGAR DIAGNOSTIC 1 EACH STRIP IN SCH ×4 (00:50→18:19)
[2018-12-04] MEDS: IPRATROPIUM NEB FS 0.5 MG/2.5 ML AMPUL.NEB NEB SCH ×4 (01:19→19:51)
[2018-12-04] MEDS: ALBUTEROL FS 2.5 MG/0.5 ML VIAL.NEB NEB SCH ×4 (01:19→19:51)
[2018-12-04 06:45] LABS: BASOPHILS % (AUTO) 0.1 % (0.0-2.0); EOSINOPHILS % (AUTO) 0.1 % (0.0-6.0); HEMATOCRIT 35 % (33-45); HEMOGLOBIN 10.9 g/dL (11.5-14.8); LYMPHOCYTES # (AUTO) 0.7 /CMM (0.8-4.8); LYMPHOCYTES % (AUTO) 3.1 % (20.0-44.0); MEAN CORPUSCULAR HGB CONC 31 g/dl (31.0-36.0); MEAN CORPUSCULAR VOLUME 90 fL (82-100); MONOCYTES % (AUTO) 4.5 % (2.0-12.0); NEUTROPHILS # (AUTO) 21.2 /CMM (1.8-8.9); NEUTROPHILS % (AUTO) 92.2 % (43.0-81.0); PLATELET COUNT (AUTO) 169 /CMM (150-450); RED BLOOD CELL COUNT(AUTO) 3.85 MIL/uL (4.0-5.2)
--- NOTE | 2018-12-04 06:53 | NUR ---
MS RN CLOSING NOTES Patient asleep, easily awaken, on semi-Tello's position on bed. On O2 @ 2LPM via NC, no SOB/respiratory distress noted. No complaints of pain or discomfort noted. All due meds given, no ASE noted. All nursing needs attended. Call light within easy reach. Endorsed to the next shift.
[2018-12-04 07:02] LABS: CALCIUM, SERUM 8.5 mg/dL (8.5-10.1); CARBON DIOXIDE 19 mmol/L (21-32); CHLORIDE 124 mmol/L (98-107); CREATININE 1.3 mg/dL (0.6-1.3); GLUCOSE 208 mg/dL (74-106); MAGNESIUM 2.3 mg/dL (1.8-2.4); POTASSIUM 3.8 mmol/L (3.5-5.1); UREA NITROGEN, BLOOD 51 mg/dL (7-18)
[2018-12-04 07:07] LABS: SODIUM SERUM 157 mmol/L (136-145)
--- NOTE | 2018-12-04 07:09 | NUR ---
MS RN NOTES Received call from labs, Sodium level 157, the same as the previous lab result. Endorsed to the next shift.
[2018-12-04 08:00] VITALS: BP 106/67
--- NOTE | 2018-12-04 08:00 | NUR ---
MS RN NOTES PATIENT IN BED RESTING NO SOB OR ACUTE DISTRESS NOTED. PATIENT ALERT, ORIENTED X1. NOTES WITH SOFT WRIST RESTRAIN ON RIGHT WRIST. PERIPHERAL IV INTACT PATENT. LEON CATH INTACT PATENT DRAINING YELLOW URIN. BED IN LOW LOCKED POSITION. CALL LIGHT WITHIN REACH. PATIENTS SODIUM IS 157 DR. DELCID MADE AWARE ORDERS TO CHANGE FLUIDS TO 1/2 NS AT 100ML/HR. ORDERS NOTED AND CARRIED OUT.
[2018-12-04 08:08] LABS: *SPE A/G RATIO 0.8 (0.7-1.7); *SPE ALBUMIN 2.1 g/dL (2.9-4.4); *SPE ALPHA-1-GLOBULIN 0.3 g/dL (0.0-0.4); *SPE ALPHA-2-GLOBULIN 0.9 g/dL (0.4-1.0); *SPE BETA GLOBULIN 0.7 g/dL (0.7-1.3); *SPE GLOBULIN, TOTAL 2.8 g/dL (2.2-3.9); *SPE M-SPIKE Not Observed g/dL (Not Observed); *SPEGAMMA GLOBULIN 0.8 g/dL (0.4-1.8); IMMUNOGLOBULIN A, SERUM 404 mg/dL (64-422); IMMUNOGLOBULIN G, SERUM 995 mg/dL (700-1600); IMMUNOGLOBULIN M, SERUM 87 mg/dL (26-217)
[2018-12-04] MEDS: PROSOURCE / PROSTAT (PYXIS) 30 ML UDC PO SCH (09:00)
[2018-12-04] MEDS: IV 1/2NS 1000 ML 1,000 ML IV PRN ×2 (09:16→21:17)
[2018-12-04] MEDS: PIPERACILLIN /TAZOBACTAM 3.375 G in IV D5W 50 ML IV SCH (09:17)
[2018-12-04] MEDS: NYSTATIN (PYXIS) 500,000 UNIT/5 ML ORAL.SUSP PO SCH ×3 (09:18→17:00)
[2018-12-04] MEDS: FAMOTIDINE/PF INJ 20 MG/2 ML VIAL IV SCH ×2 (09:18→16:32)
[2018-12-04] MEDS: Z GUARD REMEDY 2 OZ OINT TP SCH ×2 (09:19→21:19)
[2018-12-04] MEDS: HYDROGEL DRESSING 90 GM TUBE TP SCH ×2 (09:19→21:18)
[2018-12-04] MEDS: LEVOTHYROXINE SODIUM 50 MCG TABLET PO SCH (09:49)
--- NOTE | 2018-12-04 10:50 | NUR ---
MS RN NOTES PATIENTS PERIPHERAL IV NOTED LEAKING, UNABLE TO INSERT PERIPHERAL IV ORDERS RECEIVED FOR MIDLINE. BOAT OFFICER MADE AWARE WAITING FOR MIDLINE NURSE. WILL CONTINUE TO MONITOR.
--- NOTE | 2018-12-04 12:00 | NUR ---
MS RN NOTES MIDLINE NURSE AT BEDSIDE PLACED MIDLINE G 18 ON RIGHT UPPER ARM. PATIENT TOLERATED WELL. WILL CONTINUE TO MONITOR.
[2018-12-04] MEDS: INSULIN REGULAR, HUMAN 100 UNIT/ML 3 ML VIAL SQ PRN ×2 (12:33→17:35)
[2018-12-04 16:00] VITALS: BP 112/82
[2018-12-04] MEDS: VANCOMYCIN 0.75 GM in IV D5W 250 ML IV SCH (16:30)
--- NOTE | 2018-12-04 18:27 | NUR ---
MS RN NOTES PATIENT IN BED RESTING. NO SOB OR ACUTE DISTRESS NOTED. PATIENT REFUSED TO EAT ALL MEALS. DAUGHTER AT BEDSIDE. REFUSED ALL ORAL MEDICATIONS. ALL NEEDS MET. WILL ENDORSE CARE TO PM SHIFT.
--- NOTE | 2018-12-04 19:30 | NUR ---
RN NOTES RECEIVED PT. AWAKE, NON-VERBAL, F/C DRAINING CLEAR YELLOW URINE, RIGHT HAND WITH SOFT WRIST RESTRAINT, CIRCULATION CHECKED, SIDERAILSUPX2, WILL CONTINUE TO MONITOR
[2018-12-04 20:00] VITALS: BP 156/77
[2018-12-04 20:11] VITALS: BP 156/77
[2018-12-04] MEDS: PIPERACILLIN /TAZOBACTAM 3.375 G in IV D5W 100 ML IV SCH (21:16)
--- NOTE | 2018-12-05 | NUR ---
RN NOTES BLOOD SUGAR-150- NO COVERAGE GIVEN, PT. REFUSED TO EAT
[2018-12-05] MEDS: BLOOD SUGAR DIAGNOSTIC 1 EACH STRIP IN SCH ×4 (00:21→17:34)
[2018-12-05] MEDS: IPRATROPIUM NEB FS 0.5 MG/2.5 ML AMPUL.NEB NEB SCH ×4 (00:30→19:28)
[2018-12-05] MEDS: ALBUTEROL FS 2.5 MG/0.5 ML VIAL.NEB NEB SCH ×4 (00:30→19:28)
--- NOTE | 2018-12-05 06:26 | NUR ---
RN NOTS AWAKE , NO PAIN NOTED, F/C IN PLACE, NOT IN DISTRESS, SIDERAILSUPX2, MORNING CARE RENDERED, PT. NEEDS ATTENDED
[2018-12-05] MEDS: LEVOTHYROXINE SODIUM 50 MCG TABLET PO SCH (07:30)
[2018-12-05 07:34] LABS: BASOPHILS % (AUTO) 0.1 % (0.0-2.0); EOSINOPHILS % (AUTO) 0.1 % (0.0-6.0); HEMATOCRIT 34 % (33-45); HEMOGLOBIN 10.7 g/dL (11.5-14.8); LYMPHOCYTES # (AUTO) 0.7 /CMM (0.8-4.8); LYMPHOCYTES % (AUTO) 2.8 % (20.0-44.0); MEAN CORPUSCULAR HGB CONC 31 g/dl (31.0-36.0); MEAN CORPUSCULAR VOLUME 90 fL (82-100); MONOCYTES # (AUTO) 0.8 /CMM (0.1-1.30); MONOCYTES % (AUTO) 3.3 % (2.0-12.0); NEUTROPHILS % (AUTO) 93.7 % (43.0-81.0); PLATELET COUNT (AUTO) 152 /CMM (150-450); RED BLOOD CELL COUNT(AUTO) 3.78 MIL/uL (4.0-5.2); WHITE BLOOD COUNT (AUTO) 23.5 K/uL (4.3-11.0)
[2018-12-05 07:54] LABS: CALCIUM, SERUM 9.3 mg/dL (8.5-10.1); CARBON DIOXIDE 16 mmol/L (21-32); CHLORIDE 122 mmol/L (98-107); CREATININE 1.2 mg/dL (0.6-1.3); GLUCOSE 197 mg/dL (74-106); MAGNESIUM 1.9 mg/dL (1.8-2.4); PHOSPHORUS 3.1 mg/dL (2.5-4.9); POTASSIUM 3.5 mmol/L (3.5-5.1); SODIUM SERUM 154 mmol/L (136-145); UREA NITROGEN, BLOOD 38 mg/dL (7-18)
[2018-12-05 08:00] VITALS: BP 127/90
--- NOTE | 2018-12-05 08:00 | NUR ---
RECEIVED PATIENT IN BED ASLEEP, AROUSABLE TO VERBAL AND TACTILE STIMULI. BRIANNA MIDLINE GAUGE #18 INTACT AND PATENT WIHTOUT S/S OF COMPLICATIONS OBSERVED AT THIS TIME. LUE REMAINS SWOLLEN, ELEVATED WITH PILLOWS. CALL LIGHT WITHIN REACH, FREQUENT VISUAL CHECK DONE. NO S/S OF ACUTE DISTRESS AT THIS TIME.
[2018-12-05] MEDS: PROSOURCE / PROSTAT (PYXIS) 30 ML UDC PO SCH (09:00)
[2018-12-05] MEDS: NYSTATIN (PYXIS) 500,000 UNIT/5 ML ORAL.SUSP PO SCH ×3 (09:00→16:27)
[2018-12-05] MEDS: PIPERACILLIN /TAZOBACTAM 3.375 G in IV D5W 100 ML IV SCH ×2 (09:05→22:01)
[2018-12-05] MEDS: FAMOTIDINE/PF INJ 20 MG/2 ML VIAL IV SCH ×2 (09:05→16:26)
[2018-12-05] MEDS: HYDROGEL DRESSING 90 GM TUBE TP SCH ×2 (09:06→21:12)
[2018-12-05] MEDS: Z GUARD REMEDY 2 OZ OINT TP SCH ×2 (09:07→21:12)
[2018-12-05] MEDS: INSULIN REGULAR, HUMAN 100 UNIT/ML 3 ML VIAL SQ PRN ×2 (11:51→17:39)
[2018-12-05] MEDS: MORPHINE SULFATE INJ 2 MG/ML DISP.SYRIN IV PRN ×2 (15:24→23:09)
[2018-12-05 16:00] VITALS: BP 169/83
--- NOTE | 2018-12-05 16:00 | NUR ---
MS RN NOTES CASE MANAGEMENT TRYING TO CONTACT FAMILY TO ARRANGE HOSPICE EVAL.
[2018-12-05] MEDS: VANCOMYCIN 0.75 GM in IV D5W 250 ML IV SCH (16:26)
--- NOTE | 2018-12-05 18:59 | NUR ---
MS RN NOTES PATIENT REMAINS IN BED, ASLEEP BUT AROUSABLE TO VERBAL AND TACTILE STIMULI. PRN MORPHINE PAIN MED GIVEN ORDERED FOR PAIN SUSY WELL WITH EFFECTIVENESS NOTED DURING THE SHIFT. RESIDENT WITH NO PO INTAKE DURING BREAKFAST, ST WAS MADE AWARE. SEEN BY ST WITH CURRENT ORDER FOR NPO. NO S/S OF HYPO/HYPERGLYCEMIA. REMAINS ON IV ATB THERAPY AND IV FLUIDS ORDERED SUSY WELL W/O ASE NOTED. CALL LIGHT WITHIN REACH. NO S/S OF ACUTE DISTRESS AT THIS TIME.
--- NOTE | 2018-12-05 19:00 | NUR ---
RN osminsurfarhat opening notes Received Pt from morning nurse. Pt is resting in bed comfortably with eyes closed. Pt is response to verbal and tactile stimuli. Pt's family at the bed side. Respiration is normal. NO SOB. No S/S of distress noted. IV sites at BRIANNA midline#18g is intact, patent and infusing well 1/2NS @ 100ml/hr. All extremities were swollen and elevated with pillows. Turning and repositioning Q 2hr. Safety precautions is maintained. Bed at low position, brakes on, side rails up X3 and call light is within reach. Will continue to monitor.
--- NOTE | 2018-12-05 19:30 | NUR ---
MARIAH thornton notes RT at the bed side for breathing treatment.
[2018-12-05 20:00] VITALS: BP 138/99
[2018-12-05] MEDS ORDERED: LEVOFLOXACIN 500 MG /D5W 100ML 500 MG in PREMIX 1 EA IV SCH (20:00)
[2018-12-05] MEDS ORDERED: FLUCONAZOLE IN NS 100 MG in PREMIX 1 EA IV SCH ×2 (20:00)
--- NOTE | 2018-12-05 23:09 | NUR ---
RN medsurg notes Pt is non verbal. Administered Morphine 2mg/1ml as order for pain (non specific origin -generalized) based on Ann's scale. Pt's face is grimacing, not relaxed, moaning and restless. Will continue to monitor.
[2018-12-06] MEDS: BLOOD SUGAR DIAGNOSTIC 1 EACH STRIP IN SCH ×4 (00:40→17:21)
[2018-12-06] MEDS: INSULIN REGULAR, HUMAN 100 UNIT/ML 3 ML VIAL SQ PRN (00:44)
[2018-12-06] MEDS: IV 1/2NS 1000 ML 1,000 ML IV PRN (00:55)
--- NOTE | 2018-12-06 01:00 | NUR ---
RN medsurg notes Pt is resting in bed comfortably. No S/S of distress noted. No SOB. Will continue to monitor.
[2018-12-06] MEDS: ALBUTEROL FS 2.5 MG/0.5 ML VIAL.NEB NEB SCH ×3 (01:19→13:08)
[2018-12-06] MEDS: IPRATROPIUM NEB FS 0.5 MG/2.5 ML AMPUL.NEB NEB SCH ×3 (01:19→13:08)
--- NOTE | 2018-12-06 06:30 | NUR ---
RN medsurg closing notes Pt is resting in bed comfortably. Pt is alert and oriented X1. Awaken easily with verbal and tactile stimuli. IV sites at BRIANNA is intact, patent and infusing well. Routine meds given and all needs met. Safety precautions is maintained. Bed at low position and call light is within reach. Will endorse to morning nurse for REMINGTON.
[2018-12-06 07:00] LABS: BASOPHILS % (AUTO) 0.2 % (0.0-2.0); EOSINOPHILS % (AUTO) 0.3 % (0.0-6.0); HEMATOCRIT 31 % (33-45); HEMOGLOBIN 9.9 g/dL (11.5-14.8); LYMPHOCYTES # (AUTO) 0.7 /CMM (0.8-4.8); LYMPHOCYTES % (AUTO) 3.3 % (20.0-44.0); MEAN CORPUSCULAR HGB CONC 32 g/dl (31.0-36.0); MEAN CORPUSCULAR VOLUME 90 fL (82-100); MONOCYTES # (AUTO) 1.2 /CMM (0.1-1.30); MONOCYTES % (AUTO) 5.6 % (2.0-12.0); NEUTROPHILS # (AUTO) 18.9 /CMM (1.8-8.9); NEUTROPHILS % (AUTO) 90.6 % (43.0-81.0); PLATELET COUNT (AUTO) 130 /CMM (150-450); RED BLOOD CELL COUNT(AUTO) 3.46 MIL/uL (4.0-5.2); WHITE BLOOD COUNT (AUTO) 20.9 K/uL (4.3-11.0)
[2018-12-06 07:27] LABS: CALCIUM, SERUM 9.4 mg/dL (8.5-10.1); CARBON DIOXIDE 18 mmol/L (21-32); CHLORIDE 120 mmol/L (98-107); CREATININE 1.1 mg/dL (0.6-1.3); GLUCOSE 158 mg/dL (74-106); PHOSPHORUS 3.4 mg/dL (2.5-4.9); POTASSIUM 3.7 mmol/L (3.5-5.1); SODIUM SERUM 152 mmol/L (136-145); UREA NITROGEN, BLOOD 38 mg/dL (7-18)
[2018-12-06] MEDS: LEVOTHYROXINE SODIUM 50 MCG TABLET PO SCH (07:30)
--- NOTE | 2018-12-06 07:47 | NUR ---
MS RN OPENING NOTES RECEIVED PT IN BED RESTING. DURING ROUNDS, PT ON BREATHING TREATMENT VIA HHN. ON SUPPLEMENTARY OXYGEN AT 3L VIA NC, WITH NO ACUTE RESPIRATORY DISTRESS. PT NON VERBAL, ONLY OPENS EYES. PT EXHIBITED NO SIGNS OF PAIN OR DISCOMFORT. IVF 1/2 NS AT 100ML/HR TO BRIANNA MIDLINE G18, INTACT AND FLUID INFUSING WELL. PT KEPT COMFORTABLE. PER NIGHT NURSE, PT IS FOR DISCHARGE BACK TO [facility], TO FOLLOW UP WITH CM AND SW TODAY. CALL LIGHT AND FLUID KEPT WITHIN REACH. HOB ELEVATED. PT'S BED IN LOWEST, LOCKED POSITION WITH SR X3. WILL CONTINUE PLAN OF CARE.
[2018-12-06 07:59] VITALS: BP 138/79
[2018-12-06] MEDS: PROSOURCE / PROSTAT (PYXIS) 30 ML UDC PO SCH (09:00)
[2018-12-06] MEDS: NYSTATIN (PYXIS) 500,000 UNIT/5 ML ORAL.SUSP PO SCH ×3 (09:00→17:00)
[2018-12-06] MEDS: FAMOTIDINE/PF INJ 20 MG/2 ML VIAL IV SCH ×2 (09:00→16:05)
[2018-12-06] MEDS: PIPERACILLIN /TAZOBACTAM 3.375 G in IV D5W 100 ML IV SCH (09:09)
[2018-12-06] MEDS: Z GUARD REMEDY 2 OZ OINT TP SCH (09:11)
[2018-12-06] MEDS: HYDROGEL DRESSING 90 GM TUBE TP SCH (09:11)
--- NOTE | 2018-12-06 09:20 | NUR ---
MS RN NOTES SEEN AND EVALUATED BY SK EARLIER THIS MORNING, WITH NO NEW ORDERS NOTED. MD AWARE PT IS FOR HOSPICE EVAL TODAY AND THAT PT IS NPO. ST CAME WELL AND STATING SHE'S NOT SAFE TO TAKE ANYTHING. PT WAS EVALUATED YESTERDAY AND PT NOT SWALLOWING AT ALL. WILL CONTINUE TO MONITOR THE PT. PT KEPT COMFORTABLE.
[2018-12-06] MEDS: MORPHINE SULFATE INJ 2 MG/ML DISP.SYRIN IV PRN ×2 (10:00→16:05)
[2018-12-06 16:00] VITALS: BP 150/89
[2018-12-06] MEDS: VANCOMYCIN 0.75 GM in IV D5W 250 ML IV SCH (16:00)
--- NOTE | 2018-12-06 16:29 | NUR ---
MS RN NOTES PER MD DORIAN DC IV CHERIE. PT WILL GET DISCHARGE BACK TO SNF AT 1730.
--- NOTE | 2018-12-06 19:34 | NUR ---
MS SIGNAL CIRCUIT DESIGNER NOTES PT TO GO BACK TO [facility] AND FOR HOSPICE EVAL. REPORT GIVEN TO STEFANY LEMUS AT 1810 FOR REMINGTON. DAUGHTER/GREG JUST CALLED AT 1915, VERIFIED DISCHARGE TIME. PT UNABLE TO SIGN DISCHARGE PAPERS AND INVENTORY LIST, COSIGNED BY MARIAH/RUBEN. NO BELONGINGS PRESENT. ALL NEEDS AND CARE PROVIDED. PAIN MEDICATION PRN AROUND 1700. PIV MIDLINE TO BRIANNA REMOVED, PRESSURE DRESSING APPLIED. TRANSPORT VIA AMBULANCE WITH 3EMTS ASSIST IN A GURNEY. PT LEFT THE FACILITY AT 1930. FAHAD/LONI AND AWARE OF DISCHARGE.
== END 2018-12-06 19:38 | DRG 853 ==
LOC: ER 17:40 → ICU 19:56 → TELE 12-02 16:51 → MED 12-03 08:54
PROVIDERS: ADMIT Registered Nurse; ATTEND Student in an Organized Health Care Education/Training Program
PROC: 0KBP0ZZ Excision of Left Hip Muscle, Open Approach (ICD-10-PCS; principal; 2018-12-02)
PROC: 0KBN0ZZ Excision of Right Hip Muscle, Open Approach (ICD-10-PCS; 2018-12-02)
PROC: 05H533Z Insertion of Infusion Device into Right Subclavian Vein, Percutaneous Approach (ICD-10-PCS; 2018-12-04)
DX: A41.9 Sepsis, unspecified organism (principal); L89.154 Pressure ulcer of sacral region, stage 4; R65.21 Severe sepsis with septic shock; J18.9 Pneumonia, unspecified organism; I21.A1 Myocardial infarction type 2; N17.0 Acute kidney failure with tubular necrosis; E43 Unspecified severe protein-calorie malnutrition; G92 Toxic encephalopathy; E87.2 Acidosis; C34.90 Malignant neoplasm of unspecified part of unspecified bronchus or lung; C78.7 Secondary malignant neoplasm of liver and intrahepatic bile duct; C79.51 Secondary malignant neoplasm of bone; C79.31 Secondary malignant neoplasm of brain; E87.0 Hyperosmolality and hypernatremia; B37.0 Candidal stomatitis; M86.8X4 Other osteomyelitis, hand; N39.0 Urinary tract infection, site not specified; E86.0 Dehydration; E87.6 Hypokalemia; Z79.84 Long term (current) use of oral hypoglycemic drugs; Z90.710 Acquired absence of both cervix and uterus; R62.7 Adult failure to thrive; F03.90 Unspecified dementia, unspecified severity, without behavioral disturbance, psychotic disturbance, mood disturbance, and anxiety; F32.9 Major depressive disorder, single episode, unspecified; E88.09 Other disorders of plasma-protein metabolism, not elsewhere classified; M19.90 Unspecified osteoarthritis, unspecified site; Z90.49 Acquired absence of other specified parts of digestive tract; Z68.20 Body mass index [BMI] 20.0-20.9, adult; R74.0 Nonspecific elevation of levels of transaminase and lactic acid dehydrogenase [LDH]; L89.890 Pressure ulcer of other site, unstageable; L89.620 Pressure ulcer of left heel, unstageable; L89.610 Pressure ulcer of right heel, unstageable; L89.220 Pressure ulcer of left hip, unstageable; E11.69 Type 2 diabetes mellitus with other specified complication; Z74.01 Bed confinement status; Z79.899 Other long term (current) drug therapy; Z79.82 Long term (current) use of aspirin
CPT/HCPCS: 36415; 36569; 36600; 71045-TC; 76604-TC; 80048-TC; 80053-TC; 80076-TC; 80202-TC; 81000-TC; 82728-TC; 82784; 82803-TC; 82962-TC; 83540-TC; 83605-TC; 83735-TC; 84100-TC; 84155; 84165; 84436-TC; 84443-TC; 84484-TC; 85025-TC; 85730-TC; 86334; 87040-TC; 87081-TC; 87086-TC; 92526; 92611-TC; 93307-TC; 94799-TC; A4216; A6248; A6403; G0378; J0330; J1450; J1815; J1956; J2270; J2543; J3370; J3475; J3480; J3490; J7030; J7060